=== PATIENT | female | born 1965 | race Caucasian/White ===

== ENCOUNTER 2020-03-25 06:38 | Observation (INO) ==
--- NOTE | 2020-03-09 14:49 | PAT Medication Instructions ---
Medication Instructions Date of Service March 09, 2020 Home Medications aspirin [Aspir-81] 81 mg PO QAM cholecalciferol (vitamin D3) [Vitamin D3] 50 mcg PO QAM dulaglutide [Trulicity] 1.5 mg SUBCUT WK furosemide [Lasix] 20 mg PO QAM lisinopril 10 mg PO QAM metformin 1,000 mg PO BID multivitamin 1 tab PO QAM potassium chloride 10 meq PO QAM rosuvastatin [Crestor] 20 mg PO QAM tamoxifen 20 mg PO QAM venlafaxine [Effexor XR] 75 mg PO QAM Continue as directed dulaglutide [Trulicity] 1.5 mg SUBCUT WK (just do not take on morning of surgery) tamoxifen 20 mg PO QAM (unless surgeon states otherwise) ASK your prescriber and surgeon aspirin [Aspir-81] 81 mg PO QAM DO NOT take the morning of surgery cholecalciferol (vitamin D3) [Vitamin D3] 50 mcg PO QAM furosemide [Lasix] 20 mg PO QAM lisinopril 10 mg PO QAM metformin 1,000 mg PO BID multivitamin 1 tab PO QAM potassium chloride 10 meq PO QAM Take morning of surgery With a small sip of water, OTHERWISE NOTHING TO EAT OR DRINK AFTER MIDNIGHT: rosuvastatin [Crestor] 20 mg PO QAM venlafaxine [Effexor XR] 75 mg PO QAM Take evening before surgery metformin 1,000 mg PO BID Other Notes If you have any questions please call us at [phone] or [phone] or [phone] or [phone]
--- NOTE | 2020-03-11 11:07 | Anesthesiology Consultation ---
Date of Service March 11, 2020 Assessment & Plan (1) Encounter for pre-operative examination: - Per assessment on 03/11/20: Travel screen negative. No known COVID-19 positive contacts or current COVID-19 related symptoms. Surgeon arranging preop COVID testing. Awaiting results. - Check [facility] AM DOS Chart Review Chart Review: Acceptable Risk for Surgery and Patient seen in Pre Admission Testing Teaching & Discussion Pre-Anesthesia Teaching/Discussion Notes: Instructed NPO after midnight before surgery,except medications with 15 cc of water. Medication instructions provided according to the PAT guidelines. History Surgery Operation Date: 03/25/20 11:35 Proposed Procedures p C6-C7 Anterior Cerivcal Discectomy and Fusion, Spinal Cord Monitoring - Severiano Larose, Height/Weight Height: 5 ft 3 in Weight: 84.1 kg Allergies Allergy/AdvReac Type Severity Reaction Status Date / Time adhesive Allergy Intermediate Rash Verified 03/10/20 13:34 Penicillins Allergy Intermediate Rash Verified 03/10/20 13:34 Sulfa (Sulfonamide Allergy Intermediate Rash Verified 03/10/20 13:34 Antibiotics) Medications Home Medications Medication Instructions Recorded Confirmed Last Taken aspirin [Aspir-81] 81 mg PO QAM 03/04/20 03/04/20 Unknown cholecalciferol (vitamin D3) 50 mcg PO QAM 03/04/20 03/04/20 Unknown [Vitamin D3] dulaglutide [Trulicity] 1.5 mg SUBCUT WK 03/04/20 03/04/20 Unknown furosemide [Lasix] 20 mg PO QAM 03/04/20 03/04/20 Unknown lisinopril 10 mg PO QAM 03/04/20 03/04/20 Unknown metformin 1,000 mg PO BID 03/04/20 03/04/20 Unknown multivitamin 1 tab PO QAM 03/04/20 03/04/20 Unknown potassium chloride 10 meq PO QAM 03/04/20 03/04/20 Unknown rosuvastatin [Crestor] 20 mg PO QAM 03/04/20 03/04/20 Unknown tamoxifen 20 mg PO QAM 03/04/20 03/04/20 Unknown venlafaxine [Effexor XR] 75 mg PO QAM 03/04/20 03/04/20 Unknown Past Medical History Medical History Anxiety Depression Diabetes mellitus, type 2 NIDDM Hyperlipidemia Hypertension Obesity Osteoarthritis Exercise / Class Metabolic Activity II 4-5 Yardwork/Stairs/Walk up hill Past Family History Family History Father Diabetes Past Surgical History Surgical History History of adenoidectomy History of arthroscopy left knee History of carpal tunnel release R/L History of cholecystectomy History of colectomy History of colonoscopy History of hysterectomy History of tonsillectomy History of tooth extraction wisdom teeth History of total knee replacement right Hx of surgical procedure for torn cartlidge right leg Past Anesthesia History No Hx of Anesthesia Complications and No Family Hx of Anesthesia Complications History of PONV No Hx of PONV and No Hx of Motion Sickness Social History Smoking Status: Former smoker Do You Dip or Chew Tobacco: No Smoking End Date: QUIT 30 YRS AGO Hx Alcohol Use: Yes Alcohol type: beer, wine and hard liquor alcohol intake frequency: holidays/special occasions only Hx Substance Use: No substance use type: does not use Review of Systems Patient denies chest pain, shortness of breath, dyspnea on exertion, fever, chills, cough, wheezing, palpitations. Physical Exam Vital Signs VITALS BP 125/77 P 80 TEMP 98.1 SP02 96%RA RESP 16 PHYSICAL Full neck and c-spine range of motion. Full TMJ range of motion. TMD 3 finger breaths Mallampati Score 2 Dentition: several missing teeth including upper left side Lungs: clear throughout to auscultation Cardiac: regular rate and rhythm, no murmurs noted Spine: normal Carotid arteries: negative bruit Extremities: no edema Testing Laboratory Results 03/11/20 11:22 03/11/20 11:22 PT 11.9 Seconds (9.0-12.0) 03/11/20 11:22 INR 1.1 (0.9-1.1) 03/11/20 11:22 APTT 29.3 Seconds (21.0-31.0) 03/11/20 11:22 Hemoglobin A1c 7.1 % (4.5-5.6) H 03/11/20 11:22 Urine Color Yellow 03/11/20 11:22 Urine Appearance Clear (Clear) 03/11/20 11:22 Urine pH 5.0 (4.5-7.5) 03/11/20 11:22 Ur Specific [place] 1.010 (1.000-1.030) 03/11/20 11:22 Urine Protein Negative (Negative) 03/11/20 11:22 Urine Glucose (UA) Negative (Negative) 03/11/20 11:22 Urine Ketones Negative (Negative) 03/11/20 11:22 Urine Nitrite Negative (Negative) 03/11/20 11:22 Ur Leukocyte Esterase Negative (Negative) 03/11/20 11:22 Blood Type O Negative 03/11/20 11:22 Antibody Screen NEGATIVE 03/11/20 11:22 Electrocardiogram Date: 08/31/19 NSR at 84bpm. Low voltage QRS, consider pulmonary disease, pericardial effusion or normal variant. NS TWA. Compared to 07/07/18 EKG, NS TWA now evident in lateral leads per cloth laminating supervisor review. Chest X-Ray Date: 03/11/20 FINDINGS: Lung volumes are normal. Lungs are clear. There is no pneumothorax or pleural effusion. Cardiac size is normal. Mediastinal contours are normal. There is no evidence for pulmonary edema. There is mild elevation of the right hemidiaphragm. Incidental note is made of upper abdominal surgical clips. IMPRESSION: No acute cardiopulmonary findings.
--- NOTE | 2020-03-11 12:03 | XRay Report ---
XR chest Pre-admission PA/Lat CLINICAL HISTORY: Preoperative evaluation. COMPARISON STUDY: Chest radiograph January 10, 2013. FINDINGS: Lung volumes are normal. Lungs are clear. There is no pneumothorax or pleural effusion. Car diac size is normal. Mediastinal contours are normal. There is no evidence for pulmonary edema. There is mild elevation of the right hemidiaphragm. Incidental note is made of upper abdominal surgical cl ips. IMPRESSION: No acute cardiopulmonary findings. ACT 112: Negative or not required by law. Electronically signed by: Herberth Ball M.D. 03/11/2020 12:02 PM
[2020-03-11 12:33] LABS: Basophils # (auto) 0.03 K/uL (0-0.2); Basophils % (auto) 0.4 %; Eosinophils # (auto) 0.17 K/uL (0-0.5); Eosinophils % (auto) 2.1 %; Hematocrit (blood only) 42.4 % (37-47); Hemoglobin 14.3 g/dL (12.0-16.0); Immature Granulocytes # (auto) 0.01 K/uL (0.00-0.02); Immature Granulocytes % (auto) 0.1 %; Lymphocytes # (auto) 2.81 K/uL (1.2-3.4); Lymphocytes % (auto) 35.4 %; Mean Corpuscular Hemoglobin 29.9 pg (25-34); Mean Corpuscular Hgb Conc 33.7 g/dL (32-36); Mean Corpuscular Volume 88.5 fL (80-100); Mean Platelet Volume 11.3 fL (7.4-10.4); Monocytes # (auto) 0.42 K/uL (0.11-0.59); Monocytes % (auto) 5.3 %; Neutrophils % (auto) 56.7 %; Platelet Count 148 K/uL (130-400); RDW Coefficient of Variation 12.6 % (11.5-14.5); RDW Standard Deviation 40.1 fL (36.4-46.3); Red Blood Count 4.79 M/uL (4.2-5.4); White Blood Count 7.94 K/uL (4.8-10.8)
[2020-03-11 12:38] LABS: Appearance Urine Clear (Clear); Bilirubin Urine Negative (Negative); Blood Urine Negative (Negative); Color Urine Yellow; Glucose Urine UA Negative (Negative); Ketones Urine Negative (Negative); Leukocyte Esterase Urine Negative (Negative); Nitrite Urine Negative (Negative); Protein Urine Negative (Negative); Urobilinogen Urine Negative (Negative)
[2020-03-11 12:45] LABS: BUN Creatinine Ratio 15.5 (10-20); Creatinine Clr Calc Pharmacy 122.6 ml/min; Est GFR (African American) 122.9; Est GFR (Non-African American) 106.1; Potassium 4.1 mmol/L (3.5-5.1)
[2020-03-11 12:46] LABS: INR 1.1 (0.9-1.1); Partial Thromboplastin Ratio 1.1; Partial Thromboplastin Time 29.3 Seconds (21.0-31.0); Prothrombin Time 11.9 Seconds (9.0-12.0)
[2020-03-11 12:57] LABS: Estimated Average Glucose 157 mg/dl; Hemoglobin A1C 7.1 % (4.5-5.6)
[~2020-03-25 06:38] MED LIST: CEFAZOLIN 2000MG 2,000 MG/15 ML SYR IV SCH; CLINDAMYCIN 600 MG/54 ML BAG IV SCH; GABAPENTIN 600 MG DOSE PO SCH; LR 15ML/HR IV SCH
[2020-03-25] MEDS ORDERED: PROPOFOL IV EMULSION 10 MG/ML 20 ML VIAL IV ONE (06:50)
[2020-03-25] MEDS ORDERED: MIDAZOLAM HCL 1 MG/ML 2ML VIAL ONE (06:50)
[2020-03-25] MEDS ORDERED: DEXAMETHASONE SOD INJ 4 MG/ML VIAL ONE ×2 (06:50→08:17)
[2020-03-25] MEDS ORDERED: fentaNYL citrate 100 MCG/2 ML VIAL ONE (06:50)
[2020-03-25] MEDS ORDERED: ONDANSETRON INJ 2 MG/ML 2 ML VIAL ONE (06:50)
[2020-03-25] MEDS ORDERED: LIDOCAINE HCL 2% 2 ML VIAL/AMP(20MG/ML) INFIL ONE (06:50)
[2020-03-25] MEDS ORDERED: BACITRACIN INJ 50,000 UNIT VIAL ONE (06:58)
--- NOTE | 2020-03-25 07:30 | History & Physical Bridge Note ---
Date of Service March 25, 2020 History & Physical Bridge Note I have examined the patient, reviewed the History & Physical and in the interval since the performance of the History & Physical I have noted the following changes of clinical significance: no changes noted
--- NOTE | 2020-03-25 07:31 | History & Physical Report ---
Date of Service March 25, 2020 Assessment & Plan (1) Cervical stenosis of spinal canal: Admission and Anticipated Discharge Date Admission Date: Anterior cervical discectomy and fusion C6-C7 History of Present Illness Chief Complaint: Neck and arm pain Primary Care Provider: Geetha Suero This is a 55-year-old female who presents with back and arm pain after failing course of nonoperative care she for surgical invention. Allergies Allergy/AdvReac Type Severity Reaction Status Date / Time adhesive Allergy Intermediate Rash Verified 03/10/20 13:34 Penicillins Allergy Intermediate Rash Verified 03/10/20 13:34 Sulfa (Sulfonamide Allergy Intermediate Rash Verified 03/10/20 13:34 Antibiotics) Home Medications Home Medications Medication Instructions Recorded Confirmed Type aspirin [Aspir-81] 81 mg PO QAM 03/04/20 03/25/20 History cholecalciferol (vitamin D3) 50 mcg PO QAM 03/04/20 03/25/20 History [Vitamin D3] dulaglutide [Trulicity] 1.5 mg SUBCUT WK 03/04/20 03/25/20 History furosemide [Lasix] 20 mg PO QAM 03/04/20 03/25/20 History lisinopril 10 mg PO QAM 03/04/20 03/25/20 History metformin 1,000 mg PO BID 03/04/20 03/25/20 History multivitamin 1 tab PO QAM 03/04/20 03/25/20 History potassium chloride 10 meq PO QAM 03/04/20 03/25/20 History rosuvastatin [Crestor] 20 mg PO QAM 03/04/20 03/25/20 History tamoxifen 20 mg PO QAM 03/04/20 03/25/20 History venlafaxine [Effexor XR] 75 mg PO QAM 03/04/20 03/25/20 History Past Med/Surg History Medical History Anxiety Depression Diabetes mellitus, type 2 NIDDM Hyperlipidemia Hypertension Obesity Osteoarthritis Surgical History History of adenoidectomy History of arthroscopy left knee History of carpal tunnel release R/L History of cholecystectomy History of colectomy History of colonoscopy History of hysterectomy History of tonsillectomy History of tooth extraction wisdom teeth History of total knee replacement right Hx of surgical procedure for torn cartlidge right leg Family History Father Diabetes Social History Smoking Status: Former smoker Smoking End Date: QUIT 30 YRS AGO; Second Hand Exposure: Yes; Do You Dip or Chew Tobacco: No; Tobacco Cessation Education Requested by Patient: No Hx Alcohol Use: Yes Alcohol type: beer, wine and hard liquor Hx Substance Use: No Preferred Language: Nepalese Communication Ability: Effective Baggage Screener Required: No Beliefs That Will Affect Care: None Current Living Situation: Spouse Other Information That Helps Us Care for You: No Feels Safe at Home: Yes Safety Concerns: Feels Safe At This Time Assistive Devices: Contacts and Glasses Assistive Devices Comment: PARTIALS TO TOP AND BOTTOM Physical Exam Physical Exam: Patient is alert and oriented neurologically intact. Heart regular in rhythm. Lungs clear to auscultation. Results & Data ([facility]) Vital Signs (Past 12 Hours) Vital Signs Temp Pulse Resp BP Pulse Ox 03/25/20 06:45 36.7 C 76 20 143/83 H 98
[2020-03-25] MEDS ORDERED: SUCCINYLCHOLINE CHLORIDE 20 MG/ML 10 ML VIAL IV ONE (08:14)
[2020-03-25] MEDS ORDERED: ROCURONIUM BROMIDE 10 MG/ML 5 ML VIAL IV ONE (08:14)
[2020-03-25] MEDS ORDERED: FLOSEAL HEMOSTATIC MATRIX 10ML TOP ONE (08:23)
[2020-03-25] MEDS ORDERED: HYDROmorphone INJ 2 MG/ML SYR/VIAL ONE (08:42)
--- NOTE | 2020-03-25 09:15 | Operative Report ---
Post Operative Report Pre & Post Diagnosis Operation Date: 03/25/20 07:45 Pre-Op Diagnosis: Spinal Stenosis, Cervical Region Post-Op Diagnosis: Spinal Stenosis, Cervical Region I identified the patient and participated in the time-out.: Yes Procedure Operation Date: 03/25/20 07:45 Actual Procedures #1 anterior cervical discectomy with bilateral foraminotomies C6-C7. #2 anterior cervical arthrodesis C6-C7. #3 placement of 8 mm Spira cage filled with DBM at C6-C7. #4 application of arauz plate and screws across C6-C7. Surgeon Severiano Larose, Business Systems Consultant Germain Mayfield Estimated Blood Loss 10 Findings See Below The patient is 5 foot 3 inches tall weighing over 84 kg with a BMI in excess of 32. The patient's body habitus did add increased technical difficulty throughout the procedure from positioning to access requiring our deeper retractors. This at least 25% increase to the operative time. Specimens None Indications This is a 55-year-old female who presents with above-mentioned diagnosis after failed extensive course of nonoperative care is here for the above-mentioned procedure. Description of Procedure Patient was met with identified informed consent obtained. Patient was then taken to the operative suite underwent an patient placed in supine position Inocencio table head Pichardo head ordered. All bony prominences well-padded eyes inspected to ensure no external pressure placed upon up at this point the anterior cervical spine was prepped and draped in normal sterile fashion. With assistance of fluoroscopy identified the see 6 C7 level and a transverse incision was placed along the right anterior aspect of the cervical spine overlying this region. Sharp dissection with assistance of bipolar electrocautery was performed down to and exposing anterior cervical spine at C6- C7. Self-retaining retractors placed. Then performed a complete discectomy of C6-C7 out to the uncovertebral joints bilaterally. [place] distracting pins were utilized to assist in visualization. Removed all posterior annular fibers and longitudinal ligament to perform complete foraminotomies. Endplates were then burred to subcortical bleeding bone and an 8 mm spiral cage filled with DBM tapped in position. 5 complete screws was then applied with the assistance of fluoroscopy and the incision was then copiously irrigated explored to ensure no damage to surrounding structures remaining bleeding. 10 round EARNEST drain inserted. The incision was then closed with 2 Vicryl in a fashion of 4 Monocryl for final skin closure. Steri-Strip sterile dressings placed. Patient waken taken to PACU stable condition. Please note spinal cord monitoring was utilized at the procedure no changes noted. Lastly Germain Mayfield was present at the entire surgery involved in patient positioning complex portions of the surgery and final skin closure. I attest to the content of the Intraoperative Record and any orders documented therein. Any exceptions are noted below.
[2020-03-25] MEDS ORDERED: ONDANSETRON INJ 2 MG/ML 2 ML VIAL IV PRN ×2 (09:57→11:27)
[2020-03-25] MEDS ORDERED: PROMETHAZINE HCL 12.5 MG in SODIUM CHLORIDE 0.9% 50 ML IV PRN ×2 (09:57→11:27)
[2020-03-25] MEDS ORDERED: HYDROmorphone INJ 2 MG/ML SYR/VIAL IV PRN (09:57)
[2020-03-25] MEDS ORDERED: fentaNYL citrate 100 MCG/2 ML VIAL IV PRN (09:57)
[2020-03-25] MEDS ORDERED: ePHEDrine sulfate 50 MG/ML AMP IV PRN (09:57)
[2020-03-25] MEDS ORDERED: ATROPINE SULFATE 0.1 MG/ML 10ML SYR IV PRN (09:57)
[2020-03-25] MEDS ORDERED: METOCLOPRAMIDE HCL INJ 5 MG/ML 2 ML VIAL IV PRN ×2 (09:57→11:27)
--- NOTE | 2020-03-25 09:57 | Fluoroscopy Report ---
FL cervical 2-3V CLINICAL HISTORY: C6-C7 ACDF COMPARISON STUDY: None. FLUOROSCOPY TIME: 31 seconds. FLUOROSCOPIC IMAGES: 3 FINDINGS: Fluoroscopy was provided during anterior cervical discectomy and fusion. Exact localization is difficult on lateral projection given overlying soft tissues. Findings suggest a C6-C7 anterior d iscectomy and fusion. Endotracheal tube is partially imaged. Surgical drain is in place. IMPRESSION: Fluoroscopy provided during C6-C7 anterior discectomy and fusion. ACT 112: Negative or not required by law. Electronically signed by: Herberth Ball M.D. 03/25/2020 9:55 AM
[2020-03-25] MEDS ORDERED: OXYCODONE HCL IR 5 MG TAB (IMMEDIATE RELEASE) PO PRN (11:27)
[2020-03-25] MEDS ORDERED: DO NOT ADMINISTER FLU VACCINE PRN (11:27)
[2020-03-25] MEDS ORDERED: ONDANSETRON 4 MG OD TAB PO PRN (11:27)
[2020-03-25] MEDS ORDERED: ALUMINUM/MAGNESIUM SUSP 30 ML UDC PO PRN (11:27)
[2020-03-25] MEDS ORDERED: LORazepam 0.5 MG TAB PO PRN (11:27)
[2020-03-25] MEDS ORDERED: DEXAMETHASONE SOD PHOSPHATE 8 MG in SYRINGE 0 ML IV PRN (11:27)
[2020-03-25] MEDS ORDERED: DO NOT ADMINISTER PNEUMOCOCCAL VACCINE PRN (11:27)
[2020-03-25] MEDS ORDERED: SOD PHOSPHATE/SOD BIPHOSPHATE ENEMA 132 ML BTL PR PRN (11:27)
[2020-03-25] MEDS ORDERED: ACETAMINOPHEN 500 MG TAB PO PRN (11:27)
[2020-03-25] MEDS ORDERED: NALOXONE HCL 0.4 MG/1 ML VIAL/CARP IV PRN (11:27)
[2020-03-25] MEDS ORDERED: FAMOTIDINE 20 MG TAB PO PRN (11:27)
[2020-03-25] MEDS ORDERED: ACETAMINOPHEN 1,000 MG/100 ML VIAL IV PRN (11:27)
[2020-03-25] MEDS ORDERED: HYDROmorphone INJ 0.5 MG/0.5 ML SYR IV PRN (11:27)
[2020-03-25] MEDS ORDERED: RACEPINEPHRINE 2.25% NEBU SOLN 0.5 ML VIAL INH PRN (11:27)
[2020-03-25] MEDS ORDERED: HYDROmorphone INJ 1 MG/ML SYRINGE IV PRN (11:27)
[2020-03-25] MEDS ORDERED: LORazepam 0.5 MG/1 ML VIAL IV PRN (11:27)
[2020-03-25] MEDS ORDERED: MAGNESIUM HYDROXIDE SUSP 30 ML UDC PO PRN (11:27)
[2020-03-25] MEDS ORDERED: PHARMACY GLYCEMIC MGMT CONSULT PRN (11:54)
[2020-03-25] MEDS ORDERED: DEXTROSE 50% 50 ML SYRINGE IV PRN (12:00)
[2020-03-25] MEDS ORDERED: CARBOHYDRATES FOR HYPOGLYCEMIA PO PRN (12:00)
[2020-03-25] MEDS ORDERED: GLUCOSE 10 TABS/TUBE PO PRN (12:00)
[2020-03-25] MEDS ORDERED: GLUCAGON FOR INJ 1 MG VIAL IM PRN (12:00)
[2020-03-25] MEDS ORDERED: GLUCOSE 40% GEL 15 GM TUBE PO PRN (12:00)
--- NOTE | 2020-03-25 12:45 | Anesthesiology Progress Note ---
Date of Service March 25, 2020 Anesthesia Post Procedure Vital Signs Vital Signs: Temp Pulse Pulse Pulse Resp BP BP 03/25/20 11:59 36.6 C 95 H 18 133/80 03/25/20 11:27 85 18 03/25/20 11:20 36.7 C 96 H 18 130/76 03/25/20 10:50 37 C 86 16 137/73 03/25/20 10:35 36.5 C 79 18 132/77 03/25/20 10:25 81 20 141/72 H 03/25/20 10:15 87 20 144/77 H 03/25/20 10:05 89 15 146/76 H 03/25/20 09:55 76 16 149/75 H 03/25/20 09:45 81 15 135/85 03/25/20 09:35 36.2 C L 88 16 153/76 H 03/25/20 06:45 36.7 C 76 20 143/83 H Pulse Ox 03/25/20 11:59 94 03/25/20 11:27 96 03/25/20 11:20 95 03/25/20 10:50 96 03/25/20 10:35 96 03/25/20 10:25 96 03/25/20 10:15 97 03/25/20 10:05 98 03/25/20 09:55 98 03/25/20 09:45 98 03/25/20 09:35 97 03/25/20 06:45 98 Pain Intensity Bilateral Neck: Pain Intensity: 3 Transfer of Care Handoff Completed per policy Notes Mental Status: alert / awake / arousable and participated in evaluation Patient Amnestic to Procedure: Yes Nausea / Vomiting: adequately controlled Pain: adequately controlled Airway Patency, RR, SpO2: stable & adequate BP & HR: stable & adequate Hydration State: stable & adequate Anesthetic Complications: no major complications apparent
--- NOTE | 2020-03-25 13:09 | Hospitalist Consultation ---
Date of Consultation March 25, 2020 Assessment & Plan (1) Cervical stenosis of spinal canal: POD #0 - C6-C7 anterior discectomy with bilateral foraminotomies - Pain control, DVT prophylaxis, cervical collar per primary service - Encourage incentive spirometry - Mild post-operative nausea at present - encouraged pt to use anti-emetics if symptoms worsen - Labs in AM (2) Diabetes mellitus, type 2: Pharmacy consulted by primary service for glycemic management (3) Anxiety: - Continue outpatient Effexor (4) Hypertension: Med list clarified with patient - she is no longer taking Lisinopril but switched to Losartan (she cannot remember why) - Med rec adjusted and Losartan ordered (5) Hyperlipidemia: - Continue outpatient Crestor (6) History of chronic diarrhea: Pt uses prn Colestipol for this as outpatient - reports that she only uses occasionally. Explained that we will hold this initially while admitted since some of the medications that she is receiving may be constipating. If she develops recurrence of chronic issues with diarrhea, we can resume at that time. She is agreeable to this plan. Patient seen and reviewed with collaborating physician Dr. Davis. Plan of care discussed and as outlined above. Thank you for this consultation. We will continue to follow this patient with you. [facility] available [facility]01 at [phone]. Please do not hesitate to call with questions or concerns. Sacha Toro PA-C Supervising Physician Co-Signing Physician Notes I, Dr. Tushar Davis, have seen and examined the patient Matilde Murphy and also discussed the plans with physician server service assistant On Physical Exam General: no acute distress Neck: neck in brace Heart: regular rate Lung: no crackles, no wheezing Abdomen: soft, nontender Neuro, Extremites: able to move the upper and lower extremities Assessment and Plan -This is a patient with Spinal Stenosis of Cervical Region and on 03/25/2020 underwent cervical spine surgery by Dr. Larose (#1 anterior cervical discectomy with bilateral foraminotomies C6-C7. #2 anterior cervical arthrodesis C6-C7. #3 placement of 8 mm Spira cage filled with DBM at C6-C7. #4 application of arauz plate and screws across C6-C7.) -Hospitalist following as consult service -drain management as per orthopedic service. Follow the CBC -continue current prn pain medications -sliding scale insulin as needed while inpatient -blood pressure management with home dose losartan and furosemide -agree with other assessment and plans as documented by physician server service assistant -My colleague Dr. Means will be the hospitalist consult attending starting on 03/26/2020 History of Present Illness Reason for Consultation: Post-op Medical Mangement Requesting Physician: Severiano Larose DO Attending Physician: Severiano Larose DO History of Present Illness This is a 55 y/o female with a PMH of cervical stenosis, DISH, HTN, dyslipidemia, DM2, anxiety, and BRCA2 mutation who underwent C6-C7 anterior cervical discectomy with bilateral foraminotomies today and for whom we have been consulted to provide post-operative medical management. Currently, pt is seen sitting up in bed with hard collar in place attempting to drink tea. She reports some nausea but no vomiting. She didn't consume much of her clear liquid lunch because of the GI upset. She also reports a headache but attributes this to not eating all day and not having her morning coffee. Neck pain is currently well-controlled. She denies chest pain, dyspnea, palpitations, dysphagia, sore throat, dizziness, weakness, dysuria. Her blood sugar was higher than usual today. She indicates that her sugars are usually well- controlled. Her last A1c was 7.1 on 01/11/20. Allergies Allergy/AdvReac Type Severity Reaction Status Date / Time adhesive Allergy Intermediate Rash Verified 03/10/20 13:34 Penicillins Allergy Intermediate Rash Verified 03/10/20 13:34 Sulfa (Sulfonamide Allergy Intermediate Rash Verified 03/10/20 13:34 Antibiotics) Home Medications Home Medications Medication Instructions Recorded Confirmed Type aspirin [Aspir-81] 81 mg PO QAM 03/04/20 03/25/20 History cholecalciferol (vitamin D3) 50 mcg PO QAM 03/04/20 03/25/20 History [Vitamin D3] dulaglutide [Trulicity] 1.5 mg SUBCUT WK 03/04/20 03/25/20 History furosemide [Lasix] 20 mg PO QAM 03/04/20 03/25/20 History metformin 1,000 mg PO BID 03/04/20 03/25/20 History multivitamin 1 tab PO QAM 03/04/20 03/25/20 History potassium chloride 10 meq PO QAM 03/04/20 03/25/20 History rosuvastatin [Crestor] 20 mg PO QAM 03/04/20 03/25/20 History tamoxifen 20 mg PO QAM 03/04/20 03/25/20 History venlafaxine [Effexor XR] 75 mg PO QAM 03/04/20 03/25/20 History losartan 25 mg PO DAILY 03/25/20 03/25/20 History oxycodone 5 mg PO Q6H PRN #20 tab 03/25/20 Rx tramadol 50 mg PO Q6H PRN #20 tab 03/25/20 Rx Patient History Medical History (Updated 03/25/20 @ 14:41 by Saida Toro PA-C) Anxiety BRCA2 gene mutation positive Cervical stenosis of spinal canal Depression Diabetes mellitus, type 2 NIDDM DISH (diffuse idiopathic skeletal hyperostosis) Hyperlipidemia Hypertension Obesity Osteoarthritis Surgical History History of adenoidectomy History of arthroscopy left knee History of carpal tunnel release R/L History of cholecystectomy History of colectomy History of colonoscopy History of hysterectomy History of tonsillectomy History of tooth extraction wisdom teeth History of total knee replacement right Hx of surgical procedure for torn cartlidge right leg Family History (Updated 03/25/20 @ 13:17 by Saida Toro PA-C) Father Diabetes Heart disease Sister Ovarian cancer BRCA2 positive Mother Heart disease Social History (Updated 03/25/20 @ 13:18 by Saida Toro PA-C) Smoking Status: Former smoker Smoking End Date: QUIT 30 YRS AGO; Second Hand Exposure: Yes; Do You Dip or Chew Tobacco: No; Tobacco Cessation Education Requested by Patient: No Hx Alcohol Use: Yes Alcohol type: beer, wine and hard liquor Alcohol Intake Frequency Comment: holidays Hx Substance Use: No Preferred Language: Senegalese Communication Ability: Effective Key Punch Operator Required: No Beliefs That Will Affect Care: None marital status: Current Living Situation: Spouse Other Information That Helps Us Care for You: No Feels Safe at Home: Yes Safety Concerns: Feels Safe At This Time Assistive Devices: None Assistive Devices Comment: PARTIALS TO TOP AND BOTTOM Review of Systems Review of Systems: All systems reviewed & are unremarkable except as noted in HPI & below Constitutional: no fever, no chills, no sweats and no weakness Eyes: no diplopia Ear, Nose, Mouth, Throat: no nasal congestion, no nasal discharge, no sore throat and no dysphagia Respiratory: no cough, no dyspnea, no hemoptysis and no wheezing Cardiovascular: no chest pain, no palpitations, no lightheadedness and no edema Gastrointestinal: + nausea; no abdominal pain, no vomiting, no dysphagia and no diarrhea/loose stools Genitourinary: no dysuria, no urinary frequency and no hematuria Musculoskeletal: + neck pain Integumentary: no rash and no skin ulcer Neurologic: + headache(s); no generalized weakness, no seizure-like activity and no dizziness Psychiatric: no depression, no anxiety and no confusion Physical Exam Constitutional: WD/WN, vitals as above no acute distress Eyes: + anicteric sclerae ENMT: external ear and nose normal, oropharynx normal Neck: Hard collar in place Respiratory: normal respiratory effort, lungs clear to auscultation Auscultation: no rales, no rhonchi and no wheezes Cardiovascular: Rate/Rhythm: regular rate and regular rhythm Heart Sounds: no gallop, no murmur and no cardiac rub Gastrointestinal (Abdomen): Inspection/Auscultation: normal bowel sounds; abdomen not distended Percussion/Palpation: abdomen soft; abdomen nontender Musculoskeletal: Head/Neck/Chest: normocephalic and head atraumatic Extremities: no cyanosis and no clubbing Skin: no rashes, warm and dry Neurologic: no focal motor deficits Speech / Cognition: normal speech Psychiatric: A+Ox3, euthymic affect Results & Data Results & Data ([facility]) Vital Signs (Past 12 Hours) Vital Signs Temp Pulse Pulse Pulse Resp BP BP 03/25/20 12:55 36.6 C 96 H 20 135/77 03/25/20 11:59 36.6 C 95 H 18 133/80 03/25/20 11:27 85 18 03/25/20 11:20 36.7 C 96 H 18 130/76 03/25/20 10:50 37 C 86 16 137/73 03/25/20 10:35 36.5 C 79 18 132/77 03/25/20 10:25 81 20 141/72 H 03/25/20 10:15 87 20 144/77 H 03/25/20 10:05 89 15 146/76 H 03/25/20 09:55 76 16 149/75 H 03/25/20 09:45 81 15 135/85 03/25/20 09:35 36.2 C L 88 16 153/76 H 03/25/20 06:45 36.7 C 76 20 143/83 H Pulse Ox 03/25/20 12:55 95 03/25/20 11:59 94 03/25/20 11:27 96 03/25/20 11:20 95 03/25/20 10:50 96 03/25/20 10:35 96 03/25/20 10:25 96 03/25/20 10:15 97 03/25/20 10:05 98 03/25/20 09:55 98 03/25/20 09:45 98 03/25/20 09:35 97 03/25/20 06:45 98 Laboratory Results 03/11/20 03/11/20 03/11/20 11:22 11:22 11:22 WBC 7.94 RBC 4.79 Hgb 14.3 Hct 42.4 MCV 88.5 MCH 29.9 MCHC 33.7 RDW Std Deviation 40.1 RDW Coeff of [place] 12.6 Plt Count 148 MPV 11.3 H Immature Gran % (Auto) 0.1 Neut % (Auto) 56.7 Lymph % (Auto) 35.4 Dawes % (Auto) 5.3 Eos % (Auto) 2.1 Baso % (Auto) 0.4 Neut # (Auto) 4.50 Lymph # (Auto) 2.81 Dawes # (Auto) 0.42 Eos # (Auto) 0.17 Baso # (Auto) 0.03 Immature Gran # (Auto) 0.01 PT 11.9 INR 1.1 APTT 29.3 PTT Ratio 1.1 Sodium Potassium Chloride Carbon Dioxide Anion Gap BUN Creatinine Est Cr Clr Drug Dosing Est GFR ( Amer) Est GFR (Non-Af Amer) BUN/Creatinine Ratio Glucose POC Glucose Estimat Average Glucose Hemoglobin A1c Calcium Urine Color Urine Appearance Urine pH Ur Specific [place] Urine Protein Urine Glucose (UA) Urine Ketones Urine Blood Urine Nitrite Urine Bilirubin Urine Urobilinogen Ur Leukocyte Esterase Hepatitis C Ab Screen Blood Type O Negative Antibody Screen NEGATIVE 03/11/20 03/11/20 03/11/20 11:22 11:22 11:22 WBC RBC Hgb Hct MCV MCH MCHC RDW Std Deviation RDW Coeff of [place] Plt Count MPV Immature Gran % (Auto) Neut % (Auto) Lymph % (Auto) Dawes % (Auto) Eos % (Auto) Baso % (Auto) Neut # (Auto) Lymph # (Auto) Dawes # (Auto) Eos # (Auto) Baso # (Auto) Immature Gran # (Auto) PT INR APTT PTT Ratio Sodium 141 Potassium 4.1 Chloride 105 Carbon Dioxide 28 Anion Gap 8.0 BUN 8 Creatinine 0.52 L Est Cr Clr Drug Dosing 122.6 Est GFR ( Amer) 122.9 Est GFR (Non-Af Amer) 106.1 BUN/Creatinine Ratio 15.5 Glucose 157 H POC Glucose Estimat Average Glucose 157 Hemoglobin A1c 7.1 H Calcium 10.0 Urine Color Yellow Urine Appearance Clear Urine pH 5.0 Ur Specific [place] 1.010 Urine Protein Negative Urine Glucose (UA) Negative Urine Ketones Negative Urine Blood Negative Urine Nitrite Negative Urine Bilirubin Negative Urine Urobilinogen Negative Ur Leukocyte Esterase Negative Hepatitis C Ab Screen Blood Type Antibody Screen 03/25/20 03/25/20 03/25/20 06:55 06:58 09:38 WBC RBC Hgb Hct MCV MCH MCHC RDW Std Deviation RDW Coeff of [place] Plt Count MPV Immature Gran % (Auto) Neut % (Auto) Lymph % (Auto) Dawes % (Auto) Eos % (Auto) Baso % (Auto) Neut # (Auto) Lymph # (Auto) Dawes # (Auto) Eos # (Auto) Baso # (Auto) Immature Gran # (Auto) PT INR APTT PTT Ratio Sodium Potassium Chloride Carbon Dioxide Anion Gap BUN Creatinine Est Cr Clr Drug Dosing Est GFR ( Amer) Est GFR (Non-Af Amer) BUN/Creatinine Ratio Glucose POC Glucose 110 H 124 H Estimat Average Glucose Hemoglobin A1c Calcium Urine Color Urine Appearance Urine pH Ur Specific [place] Urine Protein Urine Glucose (UA) Urine Ketones Urine Blood Urine Nitrite Urine Bilirubin Urine Urobilinogen Ur Leukocyte Esterase Hepatitis C Ab Screen Neg Blood Type Antibody Screen 03/25/20 12:36 WBC RBC Hgb Hct MCV MCH MCHC RDW Std Deviation RDW Coeff of [place] Plt Count MPV Immature Gran % (Auto) Neut % (Auto) Lymph % (Auto) Dawes % (Auto) Eos % (Auto) Baso % (Auto) Neut # (Auto) Lymph # (Auto) Dawes # (Auto) Eos # (Auto) Baso # (Auto) Immature Gran # (Auto) PT INR APTT PTT Ratio Sodium Potassium Chloride Carbon Dioxide Anion Gap BUN Creatinine Est Cr Clr Drug Dosing Est GFR ( Amer) Est GFR (Non-Af Amer) BUN/Creatinine Ratio Glucose POC Glucose 214 H Estimat Average Glucose Hemoglobin A1c Calcium Urine Color Urine Appearance Urine pH Ur Specific [place] Urine Protein Urine Glucose (UA) Urine Ketones Urine Blood Urine Nitrite Urine Bilirubin Urine Urobilinogen Ur Leukocyte Esterase Hepatitis C Ab Screen Blood Type Antibody Screen Medications Administered Gabapentin (Gabapentin 600 Mg Dose) 600 mg PO PREOP ANSHU Stop: 03/25/20 18:00 Last Admin: 03/25/20 07:21 Dose: 600 mg Documented by: [id number] Clindamycin Phosphate (Cleocin) 600 mg in 54 mls @ 100 mls/hr IV PREOP ASNHU Stop: 03/26/20 05:59 Last Infusion: 03/25/20 08:18 Dose: 0 mls/hr Documented by: [id number] Admin: 03/25/20 07:45 Dose: 100 mls/hr Documented by: [id number] Lactated Ringer's (Lr) 1,000 mls @ 15 mls/hr IV .Q24H ANSHU Stop: 03/26/20 05:59 Last Infusion: 03/25/20 07:45 Dose: 0 mls/hr Documented by: [id number] Admin: 03/25/20 07:30 Dose: 15 mls/hr Documented by: [id number] Insulin Aspart (Insulin Aspart 100 Units/Ml 3 Ml Pen) 0 units SC ACHS ANSHU Stop: 04/24/20 11:59 Last Admin: 03/25/20 13:40 Dose: 6 units Documented by: [id number] Cosigned by: [id number] Discontinued Medications Bacitracin (Bacitracin Inj 50,000 Unit Vial) Confirm Administered Dose 50,000 units .ROUTE .STK-MED ONE Stop: 03/25/20 06:59 Last Admin: 03/25/20 08:23 Dose: 50,000 units Documented by: [id number] Insulin Human NPH (Novolin-N (Nph) Per Unit Charge) 25 units SQ NOW ONE Stop: 03/25/20 13:16 Last Admin: 03/25/20 13:40 Dose: 25 units Documented by: [id number] Cosigned by: [id number] Miscellaneous ( Floseal Hemostatic Matrix 10ml) 10 ml TOP ONCE ONE Stop: 03/25/20 08:24 Last Admin: 03/25/20 08:24 Dose: 10 ml Documented by: [id number] (1) Diabetes mellitus, type 2 Diabetes mellitus complication detail: with diabetic retinopathy Diabetes mellitus complication status: with ophthalmic complications Diabetes mellitus usp insulin use: without usp use Diabetes mellitus macular edema: macular edema presence unspecified Diabetic retinopathy severity: with mild nonproliferative retinopathy Laterality: unspecified laterality Qualified Code(s): E11.3299 - Type 2 diabetes mellitus with mild nonproliferative diabetic retinopathy without macular edema, unspecified eye (2) Hyperlipidemia Hyperlipidemia type: unspecified Qualified Code(s): E78.5 - Hyperlipidemia, unspecified (3) Hypertension Hypertension type: essential hypertension Qualified Code(s): I10 - Essential (primary) hypertension
--- NOTE | 2020-03-25 13:14 | Pharmacy Report ---
Glycemic Control Consultation - Date of Service March 25, 2020 - Scope Scope: Glycemic Pharmacist consulted for glycemic control and to write orders per [facility] inpatient glycemic control protocol. - Objective Weight: 84.3 kg Accuchecks BSG (last 24hrs): 03/25/20 03/25/20 03/25/20 06:58 09:38 12:36 POC Glucose 110 H 124 H 214 H HbA1c: Hemoglobin A1c 7.1 % (4.5-5.6) H 03/11/20 11:22 - Recent Pertinent Medications Outpatient Anti-diabetic Regimen: * Trulicity 1.5mg SQ weekly on * Metformin 1,000mg PO BIDM * A1c = 7.1 % 03/11/20 Risk Factors for Insulin Resistance: * Steroids: DXM 8mg IV * Recent Surgery * Diet - Assessment & Plan Assessment & Plan: ASSESSMENT: * 55 yo T2DM female with adequate outpatient control per recent A1c * Pt is maintained on oral antidiabetic agent + GLP-1 RA as an outpatient * Oral agents are not recommended for inpatient use d/t drug interactions, changing PO intake, and difficulty titrating for acute hyper/hypoglycemia. ADA recommends re-initiating outpatient oral agents 1-2 days prior to discharge if/when appropriate if they were held on admission. * Will hold oral agents for admission and utilize SQ basal bolus insulin regimen which is the recommended regimen for inpatient glycemic control. * Will initiate weight based insulin dosing for steroid induced hyperglycemia and titrate based on BSG trends. * Likely metformin can be resumed POD#1-2 as long as pt tolerating PO and r enal function at baseline * Will start with insulin dosing somewhat conservative since patient has weekly Trulicity on board from yesterday. * Goal is to maintain BSGs <200 mg/dl (ideally <150 mg/dl) to prevent post op complications PLAN FOR INPATIENT GLYCEMIC CONTROL: * Holding outpatient oral diabetes medications * Basal insulin * N/A * Steroid induced hyperglycemia * NPH 25 units (0.3 units/kg) SQ x 1 dose * Will re-assess need for further dosing tomorrow AM * Bolus insulin * NovoLog per scale ACHS or Q6hrs while NPO * Goal Range: Low 110 mg/dL - High 140 mg/dL * Correction Factor: 25 mg/dL/unit * Nutritional / Prandial insulin per carb ratio of 1 unit per 8 grams CHO consumed Plan for Discharge: * A1c = 7.1% on 03/11/20 * Goal A1c < 7% based on age/co-morbidities * No changes needed to outpatient regimen * Support Patient Self-Management * Healthy Lifestyle (diet, exercise, and smoking cessation) * Disease self-management (SMBG) * Prevention of complications (BP, Lipid goals, Immunizations) * Consider outpatient Diabetes Self-Management Education & Support * Please note that the plan above was derived based on current level of insulin resistance and hospital stress. These recommendations are appropriate for inpatient admission only. Plan of care upon discharge will need to be reassessed to avoid potential outpatient hypo/hyperglycemia. Thank you.
[2020-03-25] MEDS ORDERED: NovoLIN-N (NPH) PER UNIT CHARGE SQ ONE (13:15)
[2020-03-25] MEDS ORDERED: NEOSTIGMINE METHYLSULFATE 1 MG/ML 10ML VIAL ONE (13:21)
[2020-03-25] MEDS ORDERED: GLYCOPYRROLATE 0.2 MG/ML VIAL ONE (13:21)
[2020-03-25] MEDS: INSULIN ASPART 100 UNITS/ML 3 ML PEN SC SCH ×3 (13:40→21:22)
[2020-03-25] MEDS: CLINDAMYCIN 600 MG in DEXTROSE 5% 50 ML IV SCH (16:02)
[2020-03-25] MEDS: TRAMADOL HCL 50 MG TABLET PO PRN (20:18)
[2020-03-25] MEDS: SODIUM CHLORIDE 0.9% 1000ML 1,000 ML IV SCH ×2 (20:44→23:36)
[2020-03-25] MEDS ORDERED: DOCUSATE SODIUM/SENNA 50/8.6MG TAB PO SCH (21:00)
[2020-03-26] MEDS: CLINDAMYCIN 600 MG in DEXTROSE 5% 50 ML IV SCH (00:05)
[2020-03-26] MEDS: INSULIN ASPART 100 UNITS/ML 3 ML PEN SC SCH ×4 (00:08→12:36)
[2020-03-26] MEDS: POLYETHYLENE (MIRALAX) 17 GM PACK PO SCH ×3 (05:56→12:25)
[2020-03-26] MEDS ORDERED: MULTIVITAMIN TAB PO SCH (09:00)
[2020-03-26] MEDS ORDERED: FUROSEMIDE 20 MG TAB PO SCH (09:00)
[2020-03-26] MEDS ORDERED: POTASSIUM CHLORIDE 10 MEQ TABCR PO SCH (09:00)
[2020-03-26] MEDS ORDERED: TAMOXIFEN CITRATE 10 MG TABLET PO SCH (09:00)
[2020-03-26] MEDS ORDERED: LOSARTAN POTASSIUM 25 MG TAB PO SCH (09:00)
[2020-03-26] MEDS ORDERED: ROSUVASTATIN CALCIUM 20 MG TAB PO SCH (09:00)
[2020-03-26] MEDS ORDERED: ASPIRIN 81 MG ECTAB PO SCH (09:00)
[2020-03-26] MEDS ORDERED: lisinopriL 10 MG TAB PO SCH (09:00)
[2020-03-26] MEDS ORDERED: VENLAFAXINE HCL XR 75 MG CAPXR PO SCH (09:00)
[2020-03-26] MEDS ORDERED: CHOLECALCIFEROL 1,000 UNITS 25 MCG TAB PO SCH (09:00)
[2020-03-26] MEDS: TRAMADOL HCL 50 MG TABLET PO PRN (10:04)
--- NOTE | 2020-03-26 11:16 | Discharge Summary ---
Date of Service March 26, 2020 Admission HPI Per Admitting Provider This is a 55-year-old female who presents with back and arm pain after failing course of nonoperative care she for surgical invention. Principal Diagnosis Cervical spinal stenosis with radiculopathy Discharge Data Allergies Allergy/AdvReac Type Severity Reaction Status Date / Time adhesive Allergy Intermediate Rash Verified 03/10/20 13:34 Penicillins Allergy Intermediate Rash Verified 03/10/20 13:34 Sulfa (Sulfonamide Allergy Intermediate Rash Verified 03/10/20 13:34 Antibiotics) Consultations 03/25/20 11:27 Consult Hospitalist Routine Procedures Performed Operation Date: 03/25/20 07:45 Actual Procedures p C6-C7 Anterior Cerivcal Discectomy and Fusion, Spinal Cord Monitoring(Not Applicable) - Severiano Larose DO Ordered Studies 03/25/20 07:45 FL cervical 2-3V Routine FL fluoroscopy <1hr Routine Hospital Course (1) Cervical stenosis of spinal canal: Patient underwent anterior cervical discectomy fusion tolerated well was taken to orthopedic for postoperative. Postop day 1 she was swallowing well no hoarseness arm symptoms improved EARNEST drain decreasing probably. Subsequently discharged home. Discharge orders instructions were on the chart for further review. Total Time Total Time Spent Total Time Spent (In Minutes): 20 minutes Discharge Plan Discharge Items Patient Disposition: Home - Self-Care Reason For Visit: Spinal Stenosis, Cervical Region Discharge Diagnosis: Cervical spinal stenosis with radiculopathy Activity: As commented below Non-emergency contact: Primary Care Provider Call non-emergency contact if: you have any medication questions Follow-up/Referrals: Geetha Suero PA-C [Primary Care Provider] - Diet: Regular Addtl Attending Provider Instructions: ACTIVITY RECOMMENDATIONS: SELF CARE INSTRUCTIONS AFTER CERVICAL FUSIONS 1. No smoking. Smoking drastically decreases the chance of a solid fusion. 2. No bending, lifting more than 5 pounds, or twisting (roll like a log when turning in bed). 3. You may shower 3 days after surgery. Thoroughly dry wound. Do not soak in the tub. 4. Cervical collar: Must be worn at all times including sleeping. You may remove the brace only to bath, eat and if you are sitting in a recliner. 5. Please walk as much as you can for exercise. Gradually increase the distance that you walk as your endurance increases. SPECIAL CARE INSTRUCTIONS: VERY IMPORTANT TO READ AND REVIEW A. Do not take any anti-inflammatory medications (i.e. Indocin, Advil, Aspirin, Naprosyn, Aleve, Motrin, etc.) as these may inhibit the chance of a solid fusion. Tylenol is okay to take. B. Your surgical incision has been closed with a cosmetic suture under the skin that will dissolve in about 6 weeks. In 14 days, you can use a pair of clean scissors and cut the suture that is left outside of the skin at the ends of your incision. C. Complications are uncommon, but please contact us if you have any signs or symptoms of: 1. wound infection (fever higher than 102.5 degrees F, redness, separation of wound, drainage, or increasing pain from the incision) 2. blood clots in legs (pain, swelling, redness and warmth in legs) 3. urinary tract infection (fever higher than 102.5 degrees, burning upon urination or increased frequency of urination) 4. nerve problems (inability to walk on your toes or heels, numbness, loss of bowel or bladder control) 5. any other symptoms that concern you. D. Please call the office at if you have any concerns or questions about your operation or recovery. MANAGING PAIN AFTER SPINAL SURGERY 1. Narcotic medication is intended for short-term use and will be provided for surgical pain. Surgical pain usually lasts for a period of 4-6 weeks. Narcotic medication includes Percocet, Vicodin, Darvocet, Tylenol #3 or Lortab. 2. Longer-term pain is more appropriately treated with non-narcotic medication such as Tylenol ES. 3. Muscle spasm is not appropriately treated with narcotics. Muscle relaxers such as Soma, Flexeril or Skelaxin can be used along with Tylenol ES. 4. Remember that we all live with some "aches and pains". This is not unusual or uncommon after an injury or as we get older. 5. We will provide appropriate medication within the normal guidelines of their prescribed use. We will also be very cautious and aware of potential abuse and extended duration of patients' medication needs. 6. Please allow 2-3 days to process refills. Prescriptions will not be mailed but must be picked up at the office. FOLLOW UP VISIT: Keep your scheduled follow-up appointment. Any questions, please call the office at . Pending Studies at Discharge: No Stand-Alone Forms: My [facility], Smoking Cessation Medications and DC Order Prescriptions: New tramadol 50 mg tablet 50 mg PO Q6H PRN (Reason: pain, moderate) Qty: 20 RF: 0 oxycodone 5 mg tablet 5 mg PO Q6H PRN (Reason: pain, severe) Qty: 20 RF: 0 Continued multivitamin Tablet 1 tab PO QAM RF: 0 venlafaxine [Effexor XR] 75 mg Capsule,Extended Release 24hr 75 mg PO QAM RF: 0 potassium chloride 10 mEq Tablet Extended Release 10 meq PO QAM RF: 0 aspirin [Aspir-81] 81 mg Tablet,Delayed Release (Dr/Ec) 81 mg PO QAM RF: 0 metformin 1,000 mg Tablet 1,000 mg PO BID RF: 0 furosemide [Lasix] 20 mg Tablet 20 mg PO QAM RF: 0 tamoxifen 20 mg Tablet 20 mg PO QAM RF: 0 rosuvastatin [Crestor] 20 mg Tablet 20 mg PO QAM RF: 0 cholecalciferol (vitamin D3) [Vitamin D3] 50 mcg (2,000 unit) Capsule 50 mcg PO QAM RF: 0 Trulicity 1.5 mg/0.5 mL Pen Injector 1.5 mg SUBCUT WK RF: 0 Discontinued losartan 25 mg tablet 25 mg PO DAILY RF: 0 Discharge Orders: Discharge Order (Routine); Ordered 03/26/20 Ordered By: Severiano Larose Admission Data Admit Date/Time: 03/25/20 09:54 Attending Provider: Severiano Larose Admit Provider: Severiano Larose Primary Care Provider: Geetha Suero Other Providers: Tushar Davis ; Cory Means
[2020-03-27] MEDS ORDERED: bisacodyL 10 MG SUPP PR PRN (09:16)
== END 2020-03-26 13:50 | disposition home or self-care (01) ==
LOC: ASU 06:38 → 3E 06:38

== ENCOUNTER 2020-10-17 06:00 | Inpatient (IN) ==
--- NOTE | 2020-09-30 09:41 | PAT Medication Instructions ---
Medication Instructions Date of Service September 30, 2020 Home Medications aspirin [Aspir-81] 81 mg PO QAM cholecalciferol (vitamin D3) [Vitamin D3] 50 mcg PO QAM furosemide [Lasix] 20 mg PO QAM metformin 1,000 mg PO BID multivitamin 1 tab PO QAM potassium chloride 10 meq PO QAM rosuvastatin [Crestor] 20 mg PO QAM tamoxifen 20 mg PO QAM venlafaxine [Effexor XR] 75 mg PO QAM semaglutide [Ozempic] 0.5 mg SUBCUT WK Continue as directed semaglutide [Ozempic] 0.5 mg SUBCUT WK ASK your prescriber and surgeon aspirin [Aspir-81] 81 mg PO QAM tamoxifen 20 mg PO QAM DO NOT take the morning of surgery cholecalciferol (vitamin D3) [Vitamin D3] 50 mcg PO QAM furosemide [Lasix] 20 mg PO QAM metformin 1,000 mg PO BID multivitamin 1 tab PO QAM potassium chloride 10 meq PO QAM Take morning of surgery With a small sip of water, OTHERWISE NOTHING TO EAT OR DRINK AFTER MIDNIGHT: rosuvastatin [Crestor] 20 mg PO QAM venlafaxine [Effexor XR] 75 mg PO QAM Take evening before surgery metformin 1,000 mg PO BID Other Notes If you have any questions please call us at [phone] or [phone] or [phone] or [phone]
--- NOTE | 2020-10-03 13:53 | Anesthesiology Consultation ---
Date of Service October 03, 2020 Assessment & Plan (1) Encounter for pre-operative examination: - COVID screening: Per assessment on 10/03: Travel screen negative, no known COVID-19 positive contacts or current COVID-19 related symptoms. Surgeon arrangi ng preop COVID testing. Awaiting results. - Check BSG AM DOS - S/P C6-7 ACDF (03/25/20): Grade view 1, Glidescope#3, ETT 7.0 ("elective") x1 attempt, atraumatic Chart Review Chart Review: Acceptable Risk for Surgery and Patient seen in Pre Admission Testing Teaching & Discussion Pre-Anesthesia Teaching/Discussion Notes: Instructed NPO after midnight before surgery,except medications with 15 cc of water. Medication instructions provided according to the PAT guidelines. History Surgery Operation Date: 10/17/20 10:05 Proposed Procedures p Spine L3-L5 Decompression Fusion Spinal Cord Monitoring - Severiano Larose, Height/Weight Height: 5 ft 3 in Weight: 82.1 kg Allergies Allergy/AdvReac Type Severity Reaction Status Date / Time adhesive Allergy Mild Rash Verified 09/29/20 09:24 Penicillins Allergy Mild Rash Verified 09/29/20 09:24 Sulfa (Sulfonamide Allergy Mild Rash Verified 09/29/20 09:24 Antibiotics) Medications Home Medications Medication Instructions Recorded Confirmed Last Taken aspirin [Aspir-81] 81 mg PO QAM 03/04/20 09/29/20 03/24/20 08:00 cholecalciferol (vitamin D3) 50 mcg PO QAM 03/04/20 09/29/20 03/24/20 08:00 [Vitamin D3] furosemide [Lasix] 20 mg PO QAM 03/04/20 09/29/20 03/24/20 08:00 metformin 1,000 mg PO BID 03/04/20 09/29/20 03/24/20 21:00 multivitamin 1 tab PO QAM 03/04/20 09/29/20 03/24/20 08:00 potassium chloride 10 meq PO QAM 03/04/20 09/29/20 03/24/20 08:00 rosuvastatin [Crestor] 20 mg PO QAM 03/04/20 09/29/20 03/24/20 08:00 tamoxifen 20 mg PO QAM 03/04/20 09/29/20 03/24/20 08:00 venlafaxine [Effexor XR] 75 mg PO QAM 03/04/20 09/29/20 03/24/20 08:00 semaglutide [Ozempic] 0.5 mg SUBCUT WK 09/29/20 09/29/20 Unknown losartan 25 mg PO DAILY 10/03/20 10/03/20 Unknown Past Medical History Medical History Anxiety and depression BRCA2 gene mutation positive Diabetes mellitus, type 2 NIDDM DISH (diffuse idiopathic skeletal hyperostosis) Hyperlipidemia Hypertension Obesity Osteoarthritis Spinal stenosis Exercise / Class Metabolic Activity II 4-5 Yardwork/Stairs/Walk up hill (one flight of stairs (no chest pain, no sob)) Past Family History Family History Father Diabetes Heart disease Sister BRCA2 positive Ovarian cancer Mother Heart disease Other No family history of adverse response to anesthesia Past Surgical History Surgical History History of adenoidectomy History of arthroscopy Left knee History of carpal tunnel release R/L History of cholecystectomy History of colectomy Large colon polyp History of colonoscopy History of hysterectomy History of tonsillectomy History of tooth extraction wisdom teeth History of total knee replacement Right Hx of surgical procedure for torn cartlidge right leg S/P cervical spinal fusion C6-7 ACDF (03/25/20): Grade view 1, Glidescope#3, ETT 7.0 ("elective") x1 attempt, atraumatic Past Anesthesia History Difficult Airway (C6-7 ACDF (03/25/20): Grade view 1, Glidescope#3, ETT 7.0 ("elective") x1 attempt, atraumatic) and No Family Hx of Anesthesia Complications History of PONV No Hx of PONV and Hx of Motion Sickness (occasional) Social History Smoking Status: Former smoker tobacco type: cigarettes Do You Dip or Chew Tobacco: No Smoking End Date: Quit 30+ years ago Hx Alcohol Use: Yes Alcohol type: beer, wine and hard liquor alcohol intake frequency: holidays/special occasions only Hx Substance Use: No substance use type: does not use Review of Systems No snoring. Patient denies chest pain, shortness of breath, dyspnea on exertion, fever, chills, cough, wheezing, palpitations. Physical Exam Vital Signs VITALS BP 111/65 P 87 TEMP 98.4 SP02 95%RA RESP 18 PHYSICAL Full cervical extension range of motion (mild cervicalgia with extension). Full TMJ range of motion. TMD 3 finger breaths Mallampati Score 2 Dentition: + missing teeth (left upper front side + lower side) Lungs: clear throughout to auscultation Cardiac: regular rate and rhythm, no murmurs noted Spine: normal Carotid arteries: negative bruit Extremities: no edema Testing Laboratory Results 10/03/20 14:27 10/03/20 14: PT 10.9 Seconds (9.0-12.0) 10/03/20 14: INR 1.1 (0.9-1.1) 10/03/20 14: APTT 26.2 Seconds (21.0-31.0) 10/03/20 14: Urine Color Dark Yellow 10/03/20 14: Urine Appearance Clear (Clear) 10/03/20 14: Urine pH 6.0 (4.5-7.5) 10/03/20 14: Ur Specific [place] 1.029 (1.000-1.030) 10/03/20 14: Urine Protein Negative (Negative) 10/03/20 14: Urine Glucose (UA) Trace (Negative) H 10/03/20 14:27 Urine Ketones 1+ (Negative) H 10/03/20 14:27 Urine Nitrite Negative (Negative) 10/03/20 14: Ur Leukocyte Esterase Negative (Negative) 10/03/20 14: Blood Type O Negative 10/03/20 14:27 Antibody Screen NEGATIVE 10/03/20 14:27 09/06/20 HGBA1C 6.8% Electrocardiogram Date: 03/14/20 NSR at 81bpm. NS STA. Chest X-Ray Date: 03/11/20 FINDINGS: Lung volumes are normal. Lungs are clear. There is no pneumothorax or pleural effusion. Cardiac size is normal. Mediastinal contours are normal. There is no evidence for pulmonary edema. There is mild elevation of the right hemidiaphragm. Incidental note is made of upper abdominal surgical clips. IMPRESSION: No acute cardiopulmonary findings. Cervical Spine Date: 03/25/20 FINDINGS: Fluoroscopy was provided during anterior cervical discectomy and fusion. Exact localization is difficult on lateral projection given overlying soft tissues. Findings suggest a C6-C7 anterior discectomy and fusion. Endotracheal tube is partially imaged. Surgical drain is in place. IMPRESSION: Fluoroscopy provided during C6-C7 anterior discectomy and fusion.
[2020-10-03 15:25] LABS: Basophils # (auto) 0.03 K/uL (0-0.2); Basophils % (auto) 0.3 %; Eosinophils # (auto) 0.16 K/uL (0-0.5); Eosinophils % (auto) 1.8 %; Hematocrit (blood only) 41.2 % (37-47); Immature Granulocytes # (auto) 0.01 K/uL (0.00-0.02); Immature Granulocytes % (auto) 0.1 %; Lymphocytes # (auto) 3.23 K/uL (1.2-3.4); Lymphocytes % (auto) 36.8 %; Mean Corpuscular Hemoglobin 30.4 pg (25-34); Mean Corpuscular Volume 89.4 fL (80-100); Mean Platelet Volume 11.8 fL (7.4-10.4); Monocytes # (auto) 0.42 K/uL (0.11-0.59); Monocytes % (auto) 4.8 %; Neutrophils # (auto) 4.93 K/uL (1.4-6.5); Neutrophils % (auto) 56.2 %; Platelet Count 156 K/uL (130-400); RDW Coefficient of Variation 12.6 % (11.5-14.5); RDW Standard Deviation 40.6 fL (36.4-46.3); Red Blood Count 4.61 M/uL (4.2-5.4); White Blood Count 8.78 K/uL (4.8-10.8)
[2020-10-03 15:37] LABS: Appearance Urine Clear (Clear); BUN Creatinine Ratio 24.5 (10-20); Bilirubin Urine Negative (Negative); Blood Urine Negative (Negative); Calcium 8.9 mg/dl (8.5-10.1); Color Urine Dark Yellow; Creatinine Clr Calc Pharmacy 128.5 ml/min; Est GFR (African American) 125.3; Est GFR (Non-African American) 108.2; Glucose Urine UA Trace (Negative); Ketones Urine 1+ (Negative); Leukocyte Esterase Urine Negative (Negative); Nitrite Urine Negative (Negative); Potassium 4.1 mmol/L (3.5-5.1); Protein Urine Negative (Negative); Specific Gravity Urine 1.029 (1.000-1.030); Urobilinogen Urine Negative (Negative)
[2020-10-03 15:39] LABS: INR 1.1 (0.9-1.1); Partial Thromboplastin Time 26.2 Seconds (21.0-31.0); Prothrombin Time 10.9 Seconds (9.0-12.0)
[~2020-10-17 06:00] MED LIST changes: +ACETAMINOPHEN 500 MG TAB PO SCH; -CEFAZOLIN 2000MG 2,000 MG/15 ML SYR IV SCH; +CeleBREX 200 MG CAP PO SCH; +SODIUM CHLORIDE 0.9% 250 ML IV PRN
[2020-10-17] MEDS ORDERED: fentaNYL citrate 100 MCG/2 ML VIAL ONE ×2 (06:54→09:52)
[2020-10-17] MEDS ORDERED: MIDAZOLAM HCL 1 MG/ML 2ML VIAL ONE (06:54)
[2020-10-17] MEDS ORDERED: HYDROmorphone INJ 2 MG/ML SYR/VIAL ONE (06:54)
[2020-10-17] MEDS ORDERED: BUPIVACAINE/EPINEPHRINE 0.5% MPF 1:200,000 30 ML VIAL ONE (07:09)
[2020-10-17] MEDS ORDERED: BACITRACIN INJ 50,000 UNIT VIAL ONE (07:09)
--- NOTE | 2020-10-17 07:32 | History & Physical Report ---
Date of Service October 17, 2020 Assessment & Plan (1) Neurogenic claudication due to lumbar spinal stenosis: Admission and Anticipated Discharge Date Admission Date: L3-L5 decompression fusion History of Present Illness Chief Complaint: Back and leg pain Primary Care Provider: Geetha Suero This is a 55-year-old female presents with chronic persistent back and leg pain. Failing course of nonoperative care she is here for surgical invention. Allergies Allergy/AdvReac Type Severity Reaction Status Date / Time adhesive Allergy Mild Rash Verified 10/17/20 06:34 Penicillins Allergy Mild Rash Verified 10/17/20 06:34 Sulfa (Sulfonamide Allergy Mild Rash Verified 10/17/20 06:34 Antibiotics) Home Medications Medication Instructions Recorded Confirmed Type aspirin [Aspir-81] 81 mg PO QAM 03/04/20 10/17/20 History cholecalciferol (vitamin D3) 50 mcg PO QAM 03/04/20 10/17/20 History [Vitamin D3] furosemide [Lasix] 20 mg PO QAM 03/04/20 10/17/20 History metformin 1,000 mg PO BID 03/04/20 10/17/20 History multivitamin 1 tab PO QAM 03/04/20 10/17/20 History potassium chloride 10 meq PO QAM 03/04/20 10/17/20 History rosuvastatin [Crestor] 20 mg PO QAM 03/04/20 10/17/20 History tamoxifen 20 mg PO QAM 03/04/20 10/17/20 History venlafaxine [Effexor XR] 75 mg PO QAM 03/04/20 10/17/20 History semaglutide [Ozempic] 0.5 mg SUBCUT WK 09/29/20 10/17/20 History losartan 25 mg PO DAILY 10/03/20 10/17/20 History Past Med/Surg History Medical History Anxiety and depression BRCA2 gene mutation positive Diabetes mellitus, type 2 NIDDM DISH (diffuse idiopathic skeletal hyperostosis) Hyperlipidemia Hypertension Obesity Osteoarthritis Spinal stenosis Surgical History History of adenoidectomy History of arthroscopy Left knee History of carpal tunnel release R/L History of cholecystectomy History of colectomy Large colon polyp History of colonoscopy History of hysterectomy History of tonsillectomy History of tooth extraction wisdom teeth History of total knee replacement Right Hx of surgical procedure for torn cartlidge right leg S/P cervical spinal fusion C6-7 ACDF (03/25/20): Grade view 1, Glidescope#3, ETT 7.0 ("elective") x1 atte mpt, atraumatic Family History Father Diabetes Heart disease Sister BRCA2 positive Ovarian cancer Mother Heart disease Other No family history of adverse response to anesthesia Social History (Updated 03/25/20 @ 13:18 by Saida Toro PA-C) Smoking Status: Former smoker Smoking End Date: Quit 30+ years ago; Second Hand Exposure: Yes; Do You Dip or Chew Tobacco: No; Tobacco Cessation Education Requested by Patient: No Hx Alcohol Use: No Hx Substance Use: No Preferred Language: Japanese Communication Ability: Effective Chief Legal Officer Required: No Beliefs That Will Affect Care: None marital status: Current Living Situation: Spouse Other Information That Helps Us Care for You: No Feels Safe at Home: Yes Safety Concerns: Feels Safe At This Time Assistive Devices: Contacts and Glasses Physical Exam Physical Exam: Patient is alert and oriented Heart regular in rhythm Lungs clear to auscultation Results & Data ([facility]) Vital Signs (Past 12 Hours) Vital Signs Temp Pulse Resp BP Pulse Ox 10/17/20 06:39 36.9 C 64 16 129/68 96
--- NOTE | 2020-10-17 07:32 | History & Physical Bridge Note ---
Date of Service October 17, 2020 History & Physical Bridge Note I have examined the patient, reviewed the History & Physical and in the interval since the performance of the History & Physical I have noted the following changes of clinical significance: no changes noted
[2020-10-17] MEDS ORDERED: PHENYLEPHRINE HCL 10 MG/ML VIAL ONE (07:50)
[2020-10-17] MEDS ORDERED: ALBUMIN HUMAN 5% 12.5 GM/250 ML VIAL IV ONE (08:20)
[2020-10-17] MEDS ORDERED: FLOSEAL HEMOSTATIC MATRIX 10ML TOP ONE (08:25)
[2020-10-17] MEDS ORDERED: DEXAMETHASONE SOD INJ 4 MG/ML VIAL ONE (08:35)
[2020-10-17] MEDS ORDERED: PROPOFOL IV EMULSION 10 MG/ML 20 ML VIAL IV ONE (08:35)
[2020-10-17] MEDS ORDERED: NEOSTIGMINE METHYLSULFATE 1 MG/ML 10ML VIAL ONE (08:35)
[2020-10-17] MEDS ORDERED: ROCURONIUM BROMIDE 10 MG/ML 5 ML VIAL IV ONE (08:35)
[2020-10-17] MEDS ORDERED: LARYING-O-JET KIT (LTA) ONE (08:35)
[2020-10-17] MEDS ORDERED: LIDOCAINE HCL 2% 2 ML VIAL/AMP(20MG/ML) INFIL ONE (08:35)
[2020-10-17] MEDS ORDERED: GLYCOPYRROLATE 0.2 MG/ML VIAL ONE (08:35)
[2020-10-17] MEDS ORDERED: ONDANSETRON INJ 2 MG/ML 2 ML VIAL ONE (08:35)
--- NOTE | 2020-10-17 09:23 | Operative Report ---
Post Operative Report Pre & Post Diagnosis Operation Date: 10/17/20 07:45 Pre-Op Diagnosis: Neurogenic claudication due to lumbar spinal stenosis Post-Op Diagnosis: Neurogenic claudication due to lumbar spinal stenosis I identified the patient and participated in the time-out.: Yes Procedure Operation Date: 10/17/20 07:45 Actual Procedures #1 lumbar decompression with bilateral medial facetectomies and foraminotomies L3-4 and L4-5. #2 posterior spinal fusion L3-4 and L4-5. #3 placement posterior instrumentation L3-4 and L4-5. #4 interbody fusion L4-5. #5 placement peek cage 12 x 22 mm at L4-5. #6 placement locally harvested morselized autograft in the posterior lateral gutters. #7 placement of I factor in the interbody cage and posterior gutters. Surgeon Severiano Larose, Golf Course Manager Yari Clark Estimated Blood Loss 250 Findings Consistent with Post-Op Diagnosis Specimens None Indications This is a 55-year-old female who presents with above-mentioned diagnosis after failing stents course of nonoperative care is here for the above-mentioned procedure. Description of Procedure Patient was met with identified informed consent obtained. Patient was then taken to the operative suite underwent a patient placed in a prone position the [place] table top Vj frame. All bony prominences well-padded eyes inspected to ensure no external pressure placed upon them. This point the lumbar spine was prepped and draped in a sterile fashion. Sharp dissection with the assistance of Bovie cautery was performed down to and exposing the lamina and transverse processes of L3-L4-L5 bilaterally. From caudal cephalad fashion complete laminectomy of L4 and L3 was performed including bilateral medial facetectomies and foraminotomies addressing severe spinal stenosis. Pedicle screws were then placed in L3-L4-L5 bilaterally with assistance of fluoroscopy and the appropriately sized trey placed. By way of a transforaminal portion left complete discectomy of L4-5 was performed endplates curetted to subcortical bleeding bone and a 12 x 22 mm peek cage filled with I factor tapped in position. The rods were then locked into final position bilaterally. The transverse processes of L3-L4-L5 burred to subcortical bleeding bone. I factor combined with locally harvested morselized autograft placed in the posterior gutters. 15 round EARNEST drain inserted. The incision was then closed with 1 Vicryl in the fascia 2-0 Vicryl subcutaneously and 4 Monocryl for final skin closure. Steri-Strip sterile dressings placed. Patient waken taken to PACU stable condition. Please note spinal cord monitoring was utilized that the procedure no changes noted. Lastly Yari Clark was present at the entire surgery involved the patient positioning complex portions of the surgery and final skin closure. I attest to the content of the Intraoperative Record and any orders documented therein. Any exceptions are noted below.
[2020-10-17] MEDS ORDERED: ATROPINE SULFATE 0.1 MG/ML 10ML SYR IV PRN (09:53)
[2020-10-17] MEDS ORDERED: MEPERIDINE HCL 25 MG/ML CARP/VIAL IV PRN (09:53)
[2020-10-17] MEDS ORDERED: ONDANSETRON INJ 2 MG/ML 2 ML VIAL IV PRN ×2 (09:53→11:41)
[2020-10-17] MEDS ORDERED: HYDROmorphone INJ 1 MG/ML SYRINGE IV PRN ×2 (09:53→11:41)
[2020-10-17] MEDS ORDERED: ePHEDrine sulfate 50 MG/ML AMP IV PRN (09:53)
[2020-10-17] MEDS ORDERED: PHENYLEPHRINE 100MCG/ML 5ML SYR IV PRN (09:53)
--- NOTE | 2020-10-17 09:54 | Fluoroscopy Report ---
FL lumbar spine 2-3V CLINICAL HISTORY: L3-L5 DECOMPRESSION AND FUSION COMPARISON STUDY: None. FLUOROSCOPY TIME: 18 seconds. FLUOROSCOPIC IMAGES: 2 FINDINGS: Fluoroscopy was provided during L4-L5 discectomy with interbody spacer placement as well as posterior decompression with bilateral pedicle screw fusion from L3 through L5. Hardware is intact. IMPRESSION: Fluoroscopy provided during L4-5 discectomy and posterior decompression with L3-L5 with bilateral pedicle screw fusion. ACT 112: Negative or not required by law. Electronically signed by: Herberth Ball M.D. 10/17/2020 9:52 AM
--- NOTE | 2020-10-17 09:55 | Anesthesiology Progress Note ---
Date of Service October 17, 2020 Anesthesia Post Procedure Vital Signs Vital Signs: Temp Pulse Pulse Resp BP Pulse Ox 10/17/20 09:40 82 12 131/71 99 10/17/20 09:34 36.4 C L 81 15 139/73 99 10/17/20 06:39 36.9 C 64 16 129/68 96 Pain Intensity Lower Back: Pain Intensity: 3 Transfer of Care Handoff Completed per policy Notes Mental Status: alert / awake / arousable and participated in evaluation Patient Amnestic to Procedure: Yes Nausea / Vomiting: adequately controlled Pain: adequately controlled Airway Patency, RR, SpO2: stable & adequate BP & HR: stable & adequate Hydration State: stable & adequate Anesthetic Complications: no major complications apparent and Pt Satisfied with anesthetic care
[2020-10-17] MEDS: fentaNYL citrate 100 MCG/2 ML VIAL IV PRN ×4 (09:56→10:23)
[2020-10-17] MEDS ORDERED: LORazepam 0.5 MG/1 ML VIAL IV PRN (11:41)
[2020-10-17] MEDS ORDERED: SOD PHOSPHATE/SOD BIPHOSPHATE ENEMA 132 ML BTL PR PRN (11:41)
[2020-10-17] MEDS ORDERED: FAMOTIDINE 20 MG TAB PO PRN (11:41)
[2020-10-17] MEDS ORDERED: DO NOT ADMINISTER FLU VACCINE PRN (11:41)
[2020-10-17] MEDS ORDERED: ONDANSETRON 4 MG OD TAB PO PRN (11:41)
[2020-10-17] MEDS ORDERED: ACETAMINOPHEN 500 MG TAB PO PRN (11:41)
[2020-10-17] MEDS ORDERED: MAGNESIUM HYDROXIDE SUSP 30 ML UDC PO PRN (11:41)
[2020-10-17] MEDS ORDERED: ALUMINUM/MAGNESIUM SUSP 30 ML UDC PO PRN (11:41)
[2020-10-17] MEDS ORDERED: PROMETHAZINE HCL 12.5 MG in SODIUM CHLORIDE 0.9% 50 ML IV PRN (11:41)
[2020-10-17] MEDS ORDERED: diphenhydrAMINE Capsule 25 MG CAP PO PRN (11:41)
[2020-10-17] MEDS ORDERED: bisacodyL 10 MG SUPP PR PRN (11:41)
[2020-10-17] MEDS ORDERED: DO NOT ADMINISTER PNEUMOCOCCAL VACCINE PRN (11:41)
[2020-10-17] MEDS ORDERED: METOCLOPRAMIDE HCL INJ 5 MG/ML 2 ML VIAL IV PRN (11:41)
[2020-10-17] MEDS ORDERED: KETOROLAC TROMETHAMINE 15 MG/ML VIAL IV SCH (11:41)
[2020-10-17] MEDS ORDERED: HYDROmorphone INJ 0.5 MG/0.5 ML SYR IV PRN (11:41)
[2020-10-17] MEDS ORDERED: NALOXONE HCL 0.4 MG/1 ML VIAL/CARP IV PRN (11:41)
[2020-10-17] MEDS ORDERED: ACETAMINOPHEN 1,000 MG/100 ML VIAL IV PRN (11:41)
[2020-10-17] MEDS ORDERED: hydrOXYzine HCl 25 MG TAB PO PRN (11:41)
[2020-10-17] MEDS ORDERED: LORazepam 0.5 MG TAB PO PRN (11:41)
[2020-10-17] MEDS ORDERED: HYDROmorphone INJ 0.5 MG/0.5 ML SYR ONE (11:56)
[2020-10-17] MEDS ORDERED: PHARMACY GLYCEMIC MGMT CONSULT PRN (13:28)
--- NOTE | 2020-10-17 14:43 | Pharmacy Report ---
Pharmacy Glycemic Short Note 2 - Date of Service October 17, 2020 - Glycemic Short BSG Results (Last 24 hours): 10/17/20 10/17/20 06:21 09:48 POC Glucose 117 H 127 H OUTPATIENT ANTIDIABETIC REGIMEN: * Metformin 1000 mg PO BIDM * Ozempic 0.5 mg SC weekly on * HbA1c: 7.1% (03/11/20) - re-ordered for tomorrow ASSESSMENT: * AR is a 55 year old female POD #0 s/p L3-5 decompression/fusion * Received dexamethasone 8 mg IV x 1 perioperatively * Available BSGs of 117 and 127 mg/dL * Will give one-time NPH 30 units (0.4 unit/kg) SC to cover IV dexamethasone * Aggressive Novolog parameters for today PLAN FOR INPATIENT GLYCEMIC CONTROL: * Hold outpatient oral diabetes medications * Basal insulin * NPH 30 units SC x 1 (0.4 unit/kg) * Bolus insulin * NovoLog per scale ACHS or Q6hrs while NPO * Goal Range: Low 110 mg/dL - High 140 mg/dL * Correction Factor: 20 mg/dL/unit * Nutritional / Prandial insulin per carb ratio of 1 unit per 7 grams CHO consumed * 0000 check with same parameters PLAN FOR DISCHARGE: * TBD - repeat A1c ordered for tomorrow
[2020-10-17] MEDS ORDERED: NovoLIN-N (NPH) PER UNIT CHARGE SQ ONE ×2 (14:45→15:00)
[2020-10-17] MEDS ORDERED: DEXTROSE 50% 50 ML SYRINGE IV PRN (14:45)
[2020-10-17] MEDS ORDERED: GLUCOSE 10 TABS/TUBE PO PRN (14:45)
[2020-10-17] MEDS ORDERED: GLUCAGON FOR INJ 1 MG VIAL IM PRN (14:45)
[2020-10-17] MEDS ORDERED: CARBOHYDRATES FOR HYPOGLYCEMIA PO PRN (14:45)
[2020-10-17] MEDS ORDERED: GLUCOSE 40% GEL 15 GM TUBE PO PRN (14:45)
--- NOTE | 2020-10-17 15:20 | Hospitalist Consultation ---
Date of Consultation October 17, 2020 Assessment & Plan (1) S/P spinal surgery: This is a 55-year-old female with PMH of type 2 diabetes, hypertension, hyperlipidemia, mood disorder and other medical problems listed below who is POD#0 lumbar decompression with bilateral medial facetectomies and foraminotomies L3-4 and L4-5 and spinal fusion L3-4 and L4-[address] Larose. POD#0 lumbar decompression with bilateral medial facetectomies and foraminotomies L3-4 and L4-5 and spinal fusion L3-4 and L4-[address] Larose Per ortho for pain control, wound care, anticoagulation and activities Monitor H&H (preop hgb 14), continue incentive spirometry, PT/OT when appropriate (2) Diabetes mellitus, type 2: A1c 6.8 in August 2020 Hold home agents SSI while in-patient Glycemic consult placed by primary service BSG AC HS (3) Hypertension: Normotensive. Continue losartan in AM with hold paremeters (4) Hyperlipidemia: Continue statin (5) Anxiety: Continue venlafaxine DVT Ppx: per orthopedic service PCP: MISTI Suero Dispo: Per orthopedic service Patient seen in collaboration with Dr. Humphrey. Please see addendum. Thank you for this consultation. We will follow the patient with you during their hospital stay. You can reach a member of the [facility] Hospitalist Team 14/01 via [facility] [employer] [facility] Text by messaging [facility] Hospitalist role. Supervising Physician Co-Signing Physician Notes Attending addendum: The patient was seen and examined in medical floor She is a status post L3-L5 lumbar decompression and fusion He has some pain involving the back but denies any other symptoms On examination Lying in bed comfortably Hemodynamically stable Chest clear to auscultate bilaterally- Heart-S1-S2, regular Abdomen-benign, bowel sounds present and no organomegaly Extremities-no edema PLANT OPERATOR CONTROL ROOM OPERATOR-alert, awake and oriented x3 Her preop labs, EKG and imaging studies reviewed Status post lumbar back surgery remains medically stable Agree with assessment and plan as outlined above by MISTI Bailey DR History of Present Illness Reason for Consultation: Postop med management Attending Physician: Severiano Larose DO History of Present Illness This is a 55-year-old female with PMH of type 2 diabetes, hypertension, hyperlipidemia, mood disorder and other medical problems listed below who is POD#0 lumbar decompression with bilateral medial facetectomies and foraminotomies L3-4 and L4-5 and spinal fusion L3-4 and L4-[address] Larose. Patient is feeling well postoperatively. Just received pain medication for surgical site pain. Denies any pain or numbness in bilateral lower extremity. Tolerated lunch without issue. Denies fever, chills, lightheadedness, headache, chest pain, SOB, nausea, vomiting, abdominal pain, dysuria, diarrhea or constipation. Follows with MISTI Suero with [facility]. Allergies Allergy/AdvReac Type Severity Reaction Status Date / Time Sulfa (Sulfonamide Allergy Intermediate Rash Verified 10/17/20 08:32 Antibiotics) adhesive Allergy Mild Rash Verified 10/17/20 06:34 Penicillins Allergy Mild Rash Verified 10/17/20 06:34 Home Medications Medication Instructions Recorded Confirmed Type aspirin [Aspir-81] 81 mg PO QAM 03/04/20 10/17/20 History cholecalciferol (vitamin D3) 50 mcg PO QAM 03/04/20 10/17/20 History [Vitamin D3] furosemide [Lasix] 20 mg PO QAM 03/04/20 10/17/20 History metformin 1,000 mg PO BID 03/04/20 10/17/20 History multivitamin 1 tab PO QAM 03/04/20 10/17/20 History potassium chloride 10 meq PO QAM 03/04/20 10/17/20 History rosuvastatin [Crestor] 20 mg PO QAM 03/04/20 10/17/20 History tamoxifen 20 mg PO QAM 03/04/20 10/17/20 History semaglutide [Ozempic] 0.5 mg SUBCUT WK 09/29/20 10/17/20 History losartan 25 mg PO DAILY 10/03/20 10/17/20 History albuterol sulfate 2 puff INHALATION Q4H PRN 10/17/20 10/17/20 History cyclobenzaprine 10 mg PO HS PRN 10/17/20 10/17/20 History gabapentin 300 mg PO BID PRN 10/17/20 10/17/20 History venlafaxine 150 mg PO DAILY 10/17/20 10/17/20 History Patient History Medical History Anxiety and depression BRCA2 gene mutation positive Diabetes mellitus, type 2 NIDDM DISH (diffuse idiopathic skeletal hyperostosis) Hyperlipidemia Hypertension Obesity Osteoarthritis Spinal stenosis Surgical History History of adenoidectomy History of arthroscopy Left knee History of carpal tunnel release R/L History of cholecystectomy History of colectomy Large colon polyp History of colonoscopy History of hysterectomy History of tonsillectomy History of tooth extraction wisdom teeth History of total knee replacement Right Hx of surgical procedure for torn cartlidge right leg S/P cervical spinal fusion C6-7 ACDF (03/25/20): Grade view 1, Glidescope#3, ETT 7.0 ("elective") x1 atte mpt, atraumatic Family History Father Diabetes Heart disease Sister BRCA2 positive Ovarian cancer Mother Heart disease Other No family history of adverse response to anesthesia Social History Smoking Status: Former smoker Smoking End Date: Quit 30+ years ago; Second Hand Exposure: Yes; Do You Dip or Chew Tobacco: No; Tobacco Cessation Education Requested by Patient: No Hx Alcohol Use: No Hx Substance Use: No Preferred Language: Faroese Communication Ability: Effective Income Tax Manager Required: No Beliefs That Will Affect Care: None marital status: Current Living Situation: Spouse Other Information That Helps Us Care for You: No Feels Safe at Home: Yes Safety Concerns: Feels Safe At This Time Assistive Devices: Contacts and Glasses Review of Systems Review of Systems: At least ten systems reviewed and negative except as noted in the HPI. Physical Exam Physical Exam: General Appearance: WD/WN, vitals as above, NAD, sitting up in bed,conversing easily Head: normocephalic, atraumatic Eyes: normal inspection, PERRL, conjunctivae normal, anicteric sclerae ENT: external ear and nose normal, oropharynx normal Neck: normal visual inspection, trachea midline, no thyromegaly Respiratory: normal respiratory effort, lungs clear to auscultation, no wheeze, rales, rhonchi. No accessory muscle use Cardiovascular: regular rate, rhythm, no murmur, normal peripheral pulses, no BLE edema Abdomen/GI: normal bowel sounds, soft, nontender, no hepatosplenomegaly Extremities/Musculoskeletal: Lumbar surgical dressing c/d/i. EARNEST drain visualized. No cyanosis or clubbing, extremities motor strength 5/5 Neurologic: PERRL, CN's II-XI intact bilaterally and moves all extremities Psychiatric: A+Ox3, flattened affect Skin: no rashes, normal color, warm/dry Results & Data Results & Data ([facility]) Vital Signs (Past 12 Hours) Vital Signs Temp Pulse Pulse Pulse Resp BP BP 10/17/20 13:36 36.7 C 91 H 16 121/64 10/17/20 12:30 93 H 14 108/68 10/17/20 12:00 90 14 120/68 10/17/20 11:35 37.0 C 90 14 112/66 10/17/20 11:10 80 16 112/66 10/17/20 10:55 83 15 117/63 10/17/20 10:40 84 16 116/65 10/17/20 10:30 36.4 C L 87 17 125/72 10/17/20 10:20 87 15 114/69 10/17/20 10:10 82 14 118/73 10/17/20 10:00 96 H 15 130/66 10/17/20 09:50 86 15 124/67 10/17/20 09:40 82 12 131/71 10/17/20 09:34 36.4 C L 81 15 139/73 10/17/20 06:39 36.9 C 64 16 129/68 Pulse Ox 10/17/20 13:36 97 10/17/20 12:30 97 10/17/20 12:00 96 10/17/20 11:35 96 10/17/20 11:10 96 10/17/20 10:55 95 10/17/20 10:40 95 10/17/20 10:30 96 10/17/20 10:20 95 10/17/20 10:10 97 10/17/20 10:00 95 10/17/20 09:50 99 10/17/20 09:40 99 10/17/20 09:34 99 10/17/20 06:39 96 Laboratory Results Reviewed outpatient preoperative labwork. Diagnostic Findings Lumbar Spine X-Ray 10/17/20 07:45 FL lumbar spine 2-3V CLINICAL HISTORY: L3-L5 DECOMPRESSION AND FUSION COMPARISON STUDY: None. FLUOROSCOPY TIME: 18 seconds. FLUOROSCOPIC IMAGES: 2 FINDINGS: Fluoroscopy was provided during L4-L5 discectomy with interbody spacer placement as well as posterior decompression with bilateral pedicle screw fusion from L3 through L5. Hardware is intact. IMPRESSION: Fluoroscopy provided during L4-5 discectomy and posterior decompression with L3-L5 with bilateral pedicle screw fusion. ACT 112: Negative or not required by law. Electronically signed by: Herberth Ball M.D. 10/17/2020 9:52 AM (1) Diabetes mellitus, type 2 Diabetes mellitus complication detail: with diabetic retinopathy Diabetes m richard complication status: with ophthalmic complications Diabetes mellitus intermodal truck driver insulin use: without detention use Diabetes mellitus macular edema: macular edema presence unspecified Diabetic retinopathy severity: with mild nonproliferative retinopathy Laterality: unspecified laterality Qualified Code(s): E11.3299 - Type 2 diabetes mellitus with mild nonproliferative diabetic retinopathy without macular edema, unspecified eye (2) Hyperlipidemia Hyperlipidemia type: unspecified Qualified Code(s): E78.5 - Hyperlipidemia, unspecified (3) Hypertension Hypertension type: essential hypertension Qualified Code(s): I10 - Essential (primary) hypertension
[2020-10-17] MEDS ORDERED: ALBUTEROL HFA 8 GM INHALER INH PRN (15:26)
[2020-10-17] MEDS: oxyCODONE HCL IR 5 MG TAB (IMMEDIATE RELEASE) PO PRN ×2 (15:44→20:39)
[2020-10-17] MEDS: INSULIN ASPART 100 UNITS/ML 3 ML PEN SC SCH ×3 (16:06→20:41)
[2020-10-17] MEDS: CLINDAMYCIN 600 MG in DEXTROSE 5% 50 ML IV SCH ×2 (16:53→23:16)
[2020-10-17] MEDS: SODIUM CHLORIDE 0.9% 1000ML 1,000 ML IV SCH ×2 (16:53→22:22)
[2020-10-17] MEDS: DOCUSATE SODIUM/SENNA 50/8.6MG TAB PO SCH (20:40)
[2020-10-18] MEDS ORDERED: INSULIN ASPART 100 UNITS/ML 3 ML PEN SC SCH
[2020-10-18] MEDS: oxyCODONE HCL IR 5 MG TAB (IMMEDIATE RELEASE) PO PRN ×3 (04:45→18:12)
[2020-10-18] MEDS: POLYETHYLENE (MIRALAX) 17 GM PACK PO SCH ×4 (04:46→23:04)
[2020-10-18 06:44] LABS: Basophils # (auto) 0.02 K/uL (0-0.2); Basophils % (auto) 0.2 %; Eosinophils # (auto) 0.11 K/uL (0-0.5); Eosinophils % (auto) 0.9 %; Hematocrit (blood only) 34.9 % (37-47); Immature Granulocytes # (auto) 0.02 K/uL (0.00-0.02); Immature Granulocytes % (auto) 0.2 %; Lymphocytes # (auto) 2.63 K/uL (1.2-3.4); Mean Corpuscular Hemoglobin 30.4 pg (25-34); Mean Corpuscular Hgb Conc 34.4 g/dL (32-36); Mean Corpuscular Volume 88.4 fL (80-100); Mean Platelet Volume 10.5 fL (7.4-10.4); Monocytes # (auto) 0.88 K/uL (0.11-0.59); Monocytes % (auto) 7.4 %; Neutrophils # (auto) 8.27 K/uL (1.4-6.5); Neutrophils % (auto) 69.3 %; Platelet Count 142 K/uL (130-400); RDW Coefficient of Variation 12.7 % (11.5-14.5); RDW Standard Deviation 40.7 fL (36.4-46.3); Red Blood Count 3.95 M/uL (4.2-5.4); White Blood Count 11.93 K/uL (4.8-10.8)
[2020-10-18 06:48] LABS: Estimated Average Glucose 140 mg/dl; Hemoglobin A1C 6.5 % (4.5-5.6)
[2020-10-18 07:16] LABS: BUN Creatinine Ratio 26.8 (10-20); Calcium 7.7 mg/dl (8.5-10.1); Creatinine Clr Calc Pharmacy 130.6 ml/min; Est GFR (African American) 126.2; Est GFR (Non-African American) 108.9; Potassium 3.7 mmol/L (3.5-5.1)
[2020-10-18] MEDS: traMADol HCL 50 MG TABLET PO PRN ×2 (07:34→20:48)
--- NOTE | 2020-10-18 08:42 | Hospitalist Progress Note ---
Date of Service October 18, 2020 Assessment & Plan (1) S/P spinal surgery: This is a 55-year-old female with PMH of type 2 diabetes, hypertension, hyperlipidemia, mood disorder and other medical problems listed below who is POD#1 lumbar decompression with bilateral medial facetectomies and f oraminotomies L3-4 and L4-5 and spinal fusion L3-4 and L4-[address] Larose. POD#1 lumbar decompression with bilateral medial facetectomies and foraminotomies L3-4 and L4-5 and spinal fusion L3-4 and L4-[address] Larose Per ortho for pain control, wound care, anticoagulation and activities Monitor H&H (preop hgb 14), continue incentive spirometry, PT/OT when appropriate Hgb today 12.0, monitor EARNEST ouput and cbc (2) Diabetes mellitus, type 2: A1c 6.8 in August 2020, today 6.5 Hold home agents SSI while in-patient Glycemic consult placed by primary service BSG AC HS (3) Hypertension: Blood pressure on lower side this morning Hold lasix continue losartan with hold parameters - will be held this morning (4) Hyperlipidemia: Continue statin (5) Anxiety: Continue venlafaxine mood stable DVT Ppx: per orthopedic service PCP: MISTI Suero Dispo: Per orthopedic service Patient seen in collaboration with Dr. Abarca. Please see addendum. Thank you for this consultation. We will follow the patient with you during their hospital stay. You can reach a member of the [facility] Hospitalist Team 14/01 via [email or web address] Text by messaging [facility] Hospitalist role. Admission and Anticipated Discharge Date Admission Date: October 17, 2020 Supervising Physician Co-Signing Physician Notes I have seen and examined the patient and have discussed the case with the provider above. I agree with the assessment and plan as stated. Glucose within normal limits. Denies numbness or pain in legs. Doing well post operatively. Physical exam is normal-surgical site covered with dressing that is c/d/i. +EARNEST drain in place. She is looking forward to a discharge tomorrow. Thank you for this consultation. DO Tevin Subjective Patient was seen and examined in room 318. Postop lumbar surgery and T2DM. Patient overall feels well this morning and feels pain is under control. She did not sleep well last night. She denies fever, chills, sweats, lightheadedness, dizziness, chest pain, shortness of breath, nausea, vomiting, abdominal pain. She is tolerating diet well. She is using incentive spirometer at bedside. She is passing mild flatulence. Review of Systems 2 Review of Systems: All systems reviewed & are unremarkable except as noted in HPI & below Physical Exam Physical Exam: Gen: WD/WN, F, NAD, A&O x3 HEENT: Normocephalic, atraumatic, conjunctivae moist, sclerae anicteric, mucous membranes moist. Lung: Clear to Auscultation bilaterally, no wheezes/rales/rhonchi Heart: Regular rate, regular rhythm, no murmurs, rubs, or gallops Abdomen: Soft, NT, ND +BS x 4 Extremities: No edema, lumbar dressing CDI, serosang drainage in EARNEST drain noted Skin: Warm, no rash, negative turgor. : +Howe cath draining yellow urine Results & Data Results & Data ([facility]) Vital Signs (Past 12 Hours) Vital Signs Temp Pulse Pulse Resp BP Pulse Ox 10/18/20 07:15 36.9 C 73 16 93/52 L 94 10/18/20 03:08 37.0 C 76 16 112/64 91 10/17/20 23:13 36.7 C 78 16 96/58 L 94 Laboratory Results Short CBC 10/18/20 Range/Units 06:31 WBC 11.93 H (4.8-10.8) K/uL Hgb 12.0 (12.0-16.0) g/dL Hct 34.9 L (37-47) % Plt Count 142 (130-400) K/uL BMP 10/18/20 06:31 Sodium 140 Potassium 3.7 Chloride 107 Carbon Dioxide 30 BUN 13 Creatinine 0.48 L Glucose 149 H Calcium 7.7 L Medications Administered Hydromorphone HCl (Hydromorphone Inj 1 Mg/Ml Syringe) 1 mg IV Q3H PRN PRN Reason: severe pain (scale 7-10) Stop: 10/31/20 11:40 Last Admin: 10/17/20 12:14 Dose: 1 mg Documented by: [id number] Insulin Aspart (Insulin Aspart 100 Units/Ml 3 Ml Pen) 0 units SC ACHS [facility] Stop: 11/16/20 14:44 Last Admin: 10/17/20 20:41 Dose: 4 units Documented by: [id number] Cosigned by: [id number] Admin: 10/17/20 18:27 Dose: 12 units Documented by: [id number] Cosigned by: [id number] Admin: 10/17/20 16:06 Dose: Not Given Documented by: [id number] Oxycodone HCl (Oxycodone Hcl Ir 5 Mg Tab (Immediate Release)) 5 - 10 mg PO Q4H PRN PRN Reason: Moderate-Severe Pain & Pre PT Stop: 10/31/20 11:40 Last Admin: 10/18/20 04:45 Dose: 10 mg Documented by: [id number] Admin: 10/17/20 20:39 Dose: 10 mg Documented by: [id number] Admin: 10/17/20 15:44 Dose: 5 mg Documented by: [id number] Polyethylene Glycol (Polyethylene (Miralax) 17 Gm Pack) 17 gm PO Q6 ANSHU Stop: 11/17/20 05:59 Last Admin: 10/18/20 04:46 Dose: 17 gm Documented by: [id number] Senna/Docusate Sodium (Docusate Sodium/Senna 50/8.6mg Tab) 2 tab PO HS ANSHU Stop: 11/16/20 20:59 Last Admin: 10/17/20 20:40 Dose: 2 tab Documented by: [id number] Tramadol HCl (Tramadol Hcl 50 Mg Tablet) 50 - 100 mg PO Q4H PRN PRN Reason: Moderate-Severe Pain & Pre PT Stop: 11/16/20 11:40 Last Admin: 10/18/20 07:34 Dose: 100 mg Documented by: [id number] Discontinued Medications Acetaminophen (Acetaminophen 500 Mg Tab) 1,000 mg PO PREOP ANSHU Stop: 10/17/20 18:00 Last Admin: 10/17/20 06:26 Dose: 1,000 mg Documented by: [id number] Bacitracin (Bacitracin Inj 50,000 Unit Vial) Confirm Administered Dose 50,000 units .ROUTE .STK-MED ONE Stop: 10/17/20 07:10 Last Admin: 10/17/20 08:42 Dose: 50,000 units Documented by: [id number] Bupivacaine HCl/Epinephrine Bitart (Bupivacaine/Epinephrine 0.5% Mpf 1:200,000 30 Ml Vial) Confirm Administered Dose 30 ml .ROUTE .STK-MED ONE Stop: 10/17/20 07:10 Last Admin: 10/17/20 08:41 Dose: 20 ml Documented by: [id number] Celecoxib (Celebrex 200 Mg Cap) 200 mg PO PREOP ANSHU Stop: 10/17/20 18:00 Last Admin: 10/17/20 06:26 Dose: 200 mg Documented by: [id number] Fentanyl Citrate (Fentanyl Citrate 100 Mcg/2 Ml Vial) Confirm Administered Dose 100 mcg .ROUTE .STK-MED ONE Stop: 10/17/20 09:53 Last Admin: 10/17/20 10:03 Dose: Not Given Documented by: [id number] Fentanyl Citrate (Fentanyl Citrate 100 Mcg/2 Ml Vial) 25 mcg IV Q5M PRN PRN Reason: PACU Use Only-Pain Stop: 10/17/20 17:53 Last Admin: 10/17/20 10:23 Dose: 25 mcg Documented by: [id number] Admin: 10/17/20 10:13 Dose: 25 mcg Documented by: [id number] Admin: 10/17/20 10:03 Dose: 25 mcg Documented by: [id number] Admin: 10/17/20 09:56 Dose: 25 mcg Documented by: [id number] Gabapentin (Gabapentin 600 Mg Dose) 600 mg PO PREOP ANSHU Stop: 10/17/20 18:00 Last Admin: 10/17/20 06:27 Dose: 600 mg Documented by: [id number] Hydromorphone HCl (Hydromorphone Inj 0.5 Mg/0.5 Ml Syr) Confirm Administered Dose 1 mg .ROUTE .STK-MED ONE Stop: 10/17/20 11:57 Last Admin: 10/17/20 16:06 Dose: Not Given Documented by: [id number] Clindamycin Phosphate (Cleocin) 600 mg in 54 mls @ 100 mls/hr IV PREOP ANSHU Stop: 10/18/20 05:59 Last Infusion: 10/17/20 18:56 Dose: 0 mls/hr Documented by: [id number] Admin: 10/17/20 07:37 Dose: 100 mls/hr Documented by: [id number] Lactated Ringer's (Lr) 1,000 mls @ 15 mls/hr IV .Q24H ANSHU Stop: 10/18/20 05:59 Last Infusion: 10/17/20 07:37 Dose: 0 mls/hr Documented by: [id number] Admin: 10/17/20 07:06 Dose: 15 mls/hr Documented by: [id number] Sodium Chloride (Nss 1000ml) 1,000 mls @ 100 mls/hr IV .Q10H ANSHU Stop: 11/16/20 11:40 Last Infusion: 10/18/20 05:05 Dose: 0 mls/hr Documented by: [id number] Admin: 10/17/20 22:22 Dose: 100 mls/hr Documented by: [id number] Infusion: 10/17/20 22:22 Dose: 100 mls/hr Documented by: [id number] Admin: 10/17/20 16:53 Dose: 100 mls/hr Documented by: [id number] Clindamycin Phosphate 600 mg/ (Dextrose) 54 mls @ 100 mls/hr IV Q8H ANSHU Stop: 10/18/20 00:33 Last Infusion: 10/17/20 23:58 Dose: 0 mls/hr Documented by: [id number] Admin: 10/17/20 23:16 Dose: 100 mls/hr Documented by: [id number] Infusion: 10/17/20 18:56 Dose: 0 mls/hr Documented by: [id number] Admin: 10/17/20 16:53 Dose: 100 mls/hr Documented by: [id number] Insulin Aspart (Insulin Aspart 100 Units/Ml 3 Ml Pen) 0 units SC 0000 ANSHU Stop: 10/18/20 00:01 Last Admin: 10/17/20 23:19 Dose: Not Given Documented by: [id number] Cosigned by: [id number] Insulin Human NPH (Novolin-N (Nph) Per Unit Charge) 25 units SQ ONE ONE Stop: 10/17/20 15:01 Last Admin: 10/17/20 15:45 Dose: 25 units Documented by: [id number] Cosigned by: [id number] Miscellaneous ( Floseal Hemostatic Matrix 10ml) 30 ml TOP ONCE ONE Stop: 10/17/20 08:26 Last Admin: 10/17/20 09:15 Dose: 13 ml Documented by: [id number] (1) Diabetes mellitus, type 2 Diabetes mellitus complication detail: with diabetic retinopathy Diabetes mellitus complication status: with ophthalmic complications 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
[2020-10-18] MEDS ORDERED: LOSARTAN POTASSIUM 25 MG TAB PO SCH (09:00)
[2020-10-18] MEDS ORDERED: VENLAFAXINE HCL XR 75 MG CAPXR PO SCH (09:00)
[2020-10-18] MEDS ORDERED: FUROSEMIDE 20 MG TAB PO SCH (09:00)
[2020-10-18] MEDS: MULTIVITAMIN TAB PO SCH (09:06)
[2020-10-18] MEDS: CHOLECALCIFEROL 1,000 UNITS 25 MCG TAB PO SCH (09:06)
[2020-10-18] MEDS: VENLAFAXINE HCL XR 150 MG CAPXR PO SCH (09:06)
[2020-10-18] MEDS: ASPIRIN 81 MG ECTAB PO SCH (09:07)
[2020-10-18] MEDS: POTASSIUM CHLORIDE 10 MEQ TABCR PO SCH (09:07)
[2020-10-18] MEDS: TAMOXIFEN CITRATE 10 MG TABLET PO SCH (09:08)
[2020-10-18] MEDS: ROSUVASTATIN CALCIUM 20 MG TAB PO SCH (09:08)
[2020-10-18] MEDS: INSULIN ASPART 100 UNITS/ML 3 ML PEN SC SCH ×4 (09:09→20:45)
[2020-10-18] MEDS ORDERED: NovoLIN-N (NPH) PER UNIT CHARGE SQ ONE (09:15)
--- NOTE | 2020-10-18 09:18 | Orthopedic Progress Note ---
Date of Service October 18, 2020 Assessment & Plan (1) Neurogenic claudication due to lumbar spinal stenosis: Admission and Anticipated Discharge Date Admission Date: October 17, 2020 At this time we will continue with physical therapy monitor her EARNEST output anticipate possible discharge home tomorrow. Subjective Back pain controlled leg pain improved Physical Exam Physical Exam: Patient is in a chair at the bedside. She appears comfortable. Is is good strength testing. Results & Data ([facility]) Vital Signs (Past 12 Hours) Vital Signs Temp Pulse Pulse Resp BP Pulse Ox 10/18/20 07:15 36.9 C 73 16 93/52 L 94 10/18/20 03:08 37.0 C 76 16 112/64 91 10/17/20 23:13 36.7 C 78 16 96/58 L 94
[2020-10-18] MEDS: DOCUSATE SODIUM/SENNA 50/8.6MG TAB PO SCH (20:45)
[2020-10-19] MEDS: POLYETHYLENE (MIRALAX) 17 GM PACK PO SCH ×4 (05:36→23:08)
[2020-10-19] MEDS: oxyCODONE HCL IR 5 MG TAB (IMMEDIATE RELEASE) PO PRN ×3 (06:18→21:00)
[2020-10-19] MEDS: VENLAFAXINE HCL XR 150 MG CAPXR PO SCH (08:07)
[2020-10-19] MEDS: TAMOXIFEN CITRATE 10 MG TABLET PO SCH (08:07)
[2020-10-19] MEDS: CHOLECALCIFEROL 1,000 UNITS 25 MCG TAB PO SCH (08:08)
[2020-10-19] MEDS: ROSUVASTATIN CALCIUM 20 MG TAB PO SCH (08:08)
[2020-10-19] MEDS: POTASSIUM CHLORIDE 10 MEQ TABCR PO SCH (08:08)
[2020-10-19] MEDS: MULTIVITAMIN TAB PO SCH (08:08)
[2020-10-19] MEDS: dexAMETHasone 8 MG in SYRINGE 0 ML IV SCH (08:09)
[2020-10-19] MEDS: ASPIRIN 81 MG ECTAB PO SCH (08:09)
[2020-10-19] MEDS: INSULIN ASPART 100 UNITS/ML 3 ML PEN SC SCH ×4 (08:11→20:59)
[2020-10-19] MEDS ORDERED: NovoLIN-N (NPH) PER UNIT CHARGE SQ ONE (09:00)
--- NOTE | 2020-10-19 09:25 | Hospitalist Progress Note ---
Date of Service October 19, 2020 Assessment & Plan (1) S/P spinal surgery: This is a 55-year-old female with PMH of type 2 diabetes, hypertension, hyperlipidemia, mood disorder and other medical problems listed below who is POD#2 lumbar decompression with bilateral medial facetectomies and f oraminotomies L3-4 and L4-5 and spinal fusion L3-4 and L4-[address] Larose. POD#2 lumbar decompression with bilateral medial facetectomies and foraminotomies L3-4 and L4-5 and spinal fusion L3-4 and L4-[address] Larose Per ortho for pain control, wound care, anticoagulation and activities Monitor H&H (preop hgb 14), continue incentive spirometry, PT/OT when appropriate Hgb today 12.0, monitor EARNEST ouput and cbc Transient Hypoxia pt had documented O2 sat 88% @ 2246 last evening requiring 2L of O2 She is asymptomatic, no SOB/cough and lungs are clear continue to encourage incentive spirometry hourly recommend continued hospitalization until pt able to maintain O2 saturation w/o O2 for 24hrs (2) Diabetes mellitus, type 2: A1c 6.8 in August 2020, today 6.5 Hold home agents SSI while in-patient Glycemic consult placed by primary service BSG AC HS (3) Hypertension: Blood pressure remains on lower side this morning Hold lasix continue losartan with hold parameters - will be held this morning (4) Hyperlipidemia: Continue statin (5) Anxiety: Continue venlafaxine mood stable DVT Ppx: per orthopedic service PCP: MISTI Suero Dispo: Per orthopedic service Patient seen in collaboration with Dr. Humphrey. Please see addendum. Thank you for this consultation. We will follow the patient with you during their hospital stay. You can reach a member of the [facility] Hospitalist Team 14/01 via [email or web address] Text by messaging [facility] Hospitalist role. Admission and Anticipated Discharge Date Admission Date: October 17, 2020 Supervising Physician Co-Signing Physician Notes Attending addendum The patient was seen and examined in medical floor She is a status post L3-L5 decompression fusion Noted to have low saturation last night without any symptoms On examination No apparent distress at rest Sitting on a chair and remains hemodynamically stable Chest clear to auscultate bilaterally Heart-S1-S2, regular Abdomen-benign Extremities-no edema Her labs and imaging studies reviewed Desaturation event last night-we will observe overnight Status post L3-L5 decompression and fusion Medically stable Reviewed assessment plan as outlined above by MISTI Patel DR Subjective Patient seen and examined in room 318. Follow-up lumbar surgery and hypertension. She is sitting up in bedside chair and just ambulated with therapy. She feels well without complaint. She denies fever, chills, sweats, lightheadedness, dizziness, chest pain, shortness with, cough, nausea, vomiting, abdominal pain. She is passing flatus but no BM. She is anticipating being discharged home t kari. According to nursing notes patient did drop O2 sats to 88% last evening requiring 2 L supplemental oxygen. Upon my evaluation she was not on oxygen and saturating at 93% on room air. This was after ambulating with therapy. Review of Systems Review of Systems: All systems reviewed & are unremarkable except as noted in HPI & below Physical Exam Physical Exam: Gen: WD/WN, F, flat affect, NAD, A&O x3 HEENT: Normocephalic, atraumatic, conjunctivae moist, sclerae anicteric, mucous membranes moist. Lung: Clear to Auscultation bilaterally, no wheezes/rales/rhonchi Heart: Regular rate, regular rhythm, no murmurs, rubs, or gallops Abdomen: Soft, NT, ND +BS x 4 Extremities: No edema, lumbar dressing CDI, EARNEST drain with serosang drainage Skin: Warm, no rash, negative turgor. 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
--- NOTE | 2020-10-19 10:41 | Orthopedic Progress Note ---
Date of Service October 19, 2020 Assessment & Plan (1) Neurogenic claudication due to lumbar spinal stenosis: Admission and Anticipated Discharge Date Admission Date: October 17, 2020 We will continue physical therapy today encourage incentive spirometry monitor her O2 sats and anticipate discharge home tomorrow morning. Subjective Back pain controlled leg pain markedly improved. Physical Exam Physical Exam: Patient is in the chair at the bedside. Is good strength testing. Appears comfortable. Results & Data ([facility]) Vital Signs (Past 12 Hours) Vital Signs Temp Pulse Resp BP BP Pulse Ox 10/19/20 06:37 36.8 C 81 18 105/66 92 10/18/20 22:48 95 10/18/20 22:46 36.9 C 92 H 16 108/63 88 L
[2020-10-19] MEDS: DOCUSATE SODIUM/SENNA 50/8.6MG TAB PO SCH (21:01)
[2020-10-20] MEDS: POLYETHYLENE (MIRALAX) 17 GM PACK PO SCH (05:39)
--- NOTE | 2020-10-20 08:38 | Discharge Summary ---
Date of Service October 20, 2020 Admission HPI Per Admitting Provider This is a 55-year-old female presents with chronic persistent back and leg pain. Failing course of nonoperative care she is here for surgical invention. Principal Diagnosis Lumbar spinal stenosis with neurogenic medication Discharge Data Allergies Allergy/AdvReac Type Severity Reaction Status Date / Time Sulfa (Sulfonamide Allergy Intermediate Rash Verified 10/17/20 08:32 Antibiotics) adhesive Allergy Mild Rash Verified 10/17/20 06:34 Penicillins Allergy Mild Rash Verified 10/17/20 06:34 Consultations 10/17/20 11:41 Consult Hospitalist Routine Procedures Performed Operation Date: 10/17/20 07:45 Actual Procedures p L3-L5 Lumbar Decompression Fusion; Interbody Fusion L4-L5; Spinal Cord Monitoring - Severiano Larose DO Ordered Studies 10/17/20 07:45 [place] lumbar spine 2-3V Routine Hospital Course (1) Neurogenic claudication due to lumbar spinal stenosis: Patient with lumbar decompression fusion trial as well as leg orthopedic for postop labor postop day 1 she was up ambulating progressed to postop day #2 on postop day #3 pain was well controlled excellent strength testing separately discharged home. Discharge orders instructions from the chart for further revi ew. Total Time Total Time Spent Total Time Spent (In Minutes): 20 minutes Discharge Plan Discharge Items Patient Disposition: Home - Self-Care Reason For Visit: Intervetebral Disc Disorder with Radiculopathy, Discharge Diagnosis: Lumbar spinal stenosis with neurogenic claudication Activity: As commented below Non-emergency contact: Primary Care Provider Call non-emergency contact if: you have any medication questions Follow-up/Referrals: Geetha Suero PA-C [Primary Care Provider] - Diet: Regular Addtl Attending Provider Instructions: ACTIVITY RECOMMENDATIONS: SELF CARE INSTRUCTIONS AFTER THORACIC/LUMBAR FUSIONS 1. You may walk to your tolerance. It is good exercise for your legs and back. Expect some back and intermittent leg aches and pains. 2. You may perform "counter-top" level activities (make a sandwich, jason with a project, etc.). 3. No bending or lifting of more than 10 pounds or back twisting of any nature (roll like a log when turning in bed). 4. You may ride in a car for 20-30 minutes at a time. No driving until after your first visit with your doctor. 5. Frequent changes of position and restricting sitting to 30 minutes at a time will help limit the amount of back spasms and stiffness you may experience. 6. You may discontinue the use of ambulatory aids (cane, crutches, etc.) once your strength and confidence allow. 7. You may integrated specialist the shower and let water strike your incision when you arrive home at least once daily. Do not take a tub bath, sit in a hot tub or go into a swimming pool until after your first recheck in the office. SPECIAL CARE INSTRUCTIONS: VERY IMPORTANT TO READ AND REVIEW A. Your surgical incision has been closed with a cosmetic suture under the skin that will dissolve in about 6 weeks. In 14 days, you can use a pair of clean scissors and cut the suture that is left outside of the skin at the ends of your incision. 1. The small skin tapes can be removed 7 days after surgery if they have not fallen off by that point. 2. You may keep the wound open to air as much as possible to promote healing after post-op day number 5 unless told otherwise by your doctor. 3. If you think the wound looks like it is becoming infected (redness or worsening drainage) and/or you are experiencing fever, chill or worsening back pain and muscle spasms, contact the office so that we may evaluate you as soon as possible. B. Complications are uncommon, but please contact us if you have any signs or symptoms of: 1. wound infection (fever higher than 102.5 degrees F, redness, separation of wound, drainage, or increasing pain from the incision) 2. blood clots in legs (pain, swelling, redness and warmth in legs) 3. urinary tract infection (fever higher than 102.5 degrees F, burning upon urination or increased frequency of urination) 4. nerve problems (inability to walk on your toes or heels, numbness, loss of bowel or bladder control) 5. any other symptoms that concern you C. Please call the office at if you have any concerns or questions about your operation or recovery. D. No smoking! Smoking drastically decreases the chance of a solid fusion. E. Do not take any anti-inflammatory medications (Indocin, Advil, Motrin, Aspirin, Naprosyn, etc.) as these may inhibit the chance of a solid fusion. Tylenol is okay to take for pain. MANAGING PAIN AFTER SPINAL SURGERY 1. Narcotic medication is intended for short-term use and will be provided for surgical pain. Surgical pain usually lasts for a period of 4-6 weeks. Narcotic medication includes Percocet, Vicodin, Darvocet, Tylenol #3 or Lortab. 2. Longer-term pain is more appropriately treated with non-narcotic medication such as Tylenol ES. 3. Muscle spasm is not appropriately treated with narcotics. Muscle relaxers such as Soma, Flexeril or Skelaxin can be used along with Tylenol ES. 4. Remember that we all live with some "aches and pains". This is not unusual or uncommon after an injury or as we get older. a. Back pain is expected and may include muscle spasms for 4 to 6 weeks after surgery. The pain should gradually improve. If the pain worsens for no apparent reason, please contact the office. b. Intermittent leg pain may also be experienced and should not be concerned about unless it worsens for no apparent reason. If so, please contact the office. 5. We will provide appropriate medication within the normal guidelines of their prescribed use. We will also be very cautious and aware of potential abuse and extended duration of patients' medication needs. a. Pain medications are for your comfort and to assist with sleep and rest so that the tissue can heal. They are not provided in order to return to normal activity and should not be used through the day. To do so or worsening pain at night can result from ongoing tissue damage and development of tolerance to the prescribed medicine. 6. Please allow 2-3 days to process refills. Prescriptions will not be mailed but must be picked up at the office. FOLLOW UP VISIT: Keep your scheduled follow-up appointment. Any questions, please call the office at . Pending Studies at Discharge: No Stand-Alone Forms: My [facility], Smoking Cessation Medications and DC Order Prescriptions: New oxycodone 5 mg tablet 5 mg PO Q6H PRN (Reason: pain, severe) Qty: 30 RF: 0 tramadol 50 mg tablet 50 mg PO Q6H PRN (Reason: pain, moderate) Qty: 30 RF: 0 Continued multivitamin Tablet 1 tab PO QAM RF: 0 potassium chloride 10 mEq Tablet Extended Release 10 meq PO QAM RF: 0 aspirin [Aspir-81] 81 mg Tablet,Delayed Release (Dr/Ec) 81 mg PO QAM RF: 0 metformin 1,000 mg Tablet 1,000 mg PO BID RF: 0 furosemide [Lasix] 20 mg Tablet 20 mg PO QAM RF: 0 tamoxifen 20 mg Tablet 20 mg PO QAM RF: 0 rosuvastatin [Crestor] 20 mg Tablet 20 mg PO QAM RF: 0 cholecalciferol (vitamin D3) [Vitamin D3] 50 mcg (2,000 unit) Capsule 50 mcg PO QAM RF: 0 Ozempic 0.25 mg or 0.5 mg(2 mg/1.5 mL) Pen Injector 0.5 mg SUBCUT WK RF: 0 losartan 25 mg Tablet 25 mg PO DAILY RF: 0 cyclobenzaprine 10 mg tablet 10 mg PO HS PRN (Reason: Muscle Spasm) RF: 0 venlafaxine 150 mg capsule,extended release 24hr 150 mg PO DAILY RF: 0 gabapentin 300 mg capsule 300 mg PO BID PRN (Reason: neuropathy) RF: 0 albuterol sulfate 90 mcg/actuation HFA aerosol inhaler 2 puff INHALATION Q4H PRN (Reason: Shortness Of Breath Or Wheezing) RF: 0 Discharge Orders: Discharge Order (Routine); Ordered 10/20/20 Ordered By: Severiano Mercado/Other Patient Handouts: Managing Type 2 Diabetes, Managing Diabetes: The A1C Test Admission Data Admit Date/Time: 10/17/20 09:44 Attending Provider: Severiano Larose Admit Provider: Severiano Larose Primary Care Provider: Geetha Suero Other Providers: Rachell Abarca ; Brown Humphrey
[2020-10-20] MEDS: TAMOXIFEN CITRATE 10 MG TABLET PO SCH (08:44)
[2020-10-20] MEDS: ASPIRIN 81 MG ECTAB PO SCH (08:44)
[2020-10-20] MEDS: dexAMETHasone 8 MG in SYRINGE 0 ML IV SCH (08:45)
[2020-10-20] MEDS: MULTIVITAMIN TAB PO SCH (08:45)
[2020-10-20] MEDS: CHOLECALCIFEROL 1,000 UNITS 25 MCG TAB PO SCH (08:45)
[2020-10-20] MEDS: ROSUVASTATIN CALCIUM 20 MG TAB PO SCH (08:45)
[2020-10-20] MEDS: POTASSIUM CHLORIDE 10 MEQ TABCR PO SCH (08:45)
[2020-10-20] MEDS: INSULIN ASPART 100 UNITS/ML 3 ML PEN SC SCH (08:45)
[2020-10-20] MEDS: VENLAFAXINE HCL XR 150 MG CAPXR PO SCH (08:45)
[2020-10-20] MEDS: oxyCODONE HCL IR 5 MG TAB (IMMEDIATE RELEASE) PO PRN (08:57)
[2020-10-20] MEDS ORDERED: NovoLIN-N (NPH) PER UNIT CHARGE SQ ONE (09:00)
== END 2020-10-20 10:40 | disposition home or self-care (01) | DRG 455 ==
LOC: ASU 06:00 → 3E 09:44